=== PATIENT | female | born 1935 | race Caucasian/White ===

== ENCOUNTER 2017-02-26 11:16 | Inpatient (IN) | payer MEDICARE, BC, OTHER ==
[2017-02-26] VITALS (16 sets, daily range): BP systolic 108–137; BP diastolic 58–74; PULSE 95–122; RESP 20–32; TEMP 97.9–101.7; O2SAT 77–100
[~2017-02-26] VITALS: Ht 160 cm; Wt 49.8 kg
[~2017-02-26 11:16] MED LIST: ASPI-147 PO; ATOR40TA16 PO; CO Q100C9; CRANPOW2 PO; FURO1TAB62 PO; JANT3TAB PO; METO1TAB9 PO; OMEP20TA93 PO; SYMB160A INH; VITA500T83 PO
[2017-02-26 11:51] LABS: AUTOMATED NEUTROPHIL # 14.9 TH/MM3 (1.8-7.7); BASOPHIL % 0.3 % (0.0-2.0); HEMATOCRIT 36.2 % (35.0-46.0); HEMO FLAGS DIFF FINAL; LYMPH % 4.9 % (9.0-44.0); LYMPHOCYTE # 0.8 TH/MM3 (1.0-4.8); MEAN CELL VOLUME 89.9 FL (80.0-100.0); MEAN CORPUSCULAR HEMOGLOBIN 29.5 PG (27.0-34.0); MEAN CORPUSCULAR HGB CONC 32.8 % (32.0-36.0); MONO % 3.6 % (0.0-8.0); NEUT % 91.2 % (16.0-70.0); PLATELET COUNT 447 TH/MM3 (150-450); RED BLOOD COUNT 4.03 MIL/MM3 (4.00-5.30); RED CELL DISTRIBUTION WIDTH 14.5 % (11.6-17.2); WHITE BLOOD COUNT 16.4 TH/MM3 (4.0-11.0)
[2017-02-26] MEDS ORDERED: SODIUM CHLOR 0.9% 1000 ML INJ 1,000 ML IV SCH (11:53)
--- NOTE | 2017-02-26 11:59 | PD ---
HPI Chief Complaint: Altered Mental Status Time Seen by Provider: 11:25 Travel History International Travel<30 days: No Contact w/Intl Traveler<30days: No Traveled to known affect area: No History of Present Illness HPI 81-year-old female came to the emergency room brought by EMS for altered mental status. She was last seen normal by her friends yesterday morning. She was found today by one of the friends on the bathroom floor confused. Patient is on Coumadin and may have had a head injury during the fall. Patient was given a GCS of 12. She is confused and not answering questions appropriately. She is a poor historian at this point. She was tachycardic upon arrival in 120s and rectal temperature was 101.7. [facility] Past Medical History Narrative Medical List of her past medical, surgical, social and family history is reviewed from the nursing note. 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) High Cholesterol: Yes Chemotherapy: Yes Chest Pain: Yes Congestive Heart Failure: No COPD: Yes Cerebrovascular Accident: No Diabetes: No Diminished Hearing: No Endocrine: No Gastrointestinal Disorders: Yes GERD: Yes Genitourinary: Yes Hepatitis: No Hiatal Hernia: No Hypertension: Yes Immune Disorder: No Implanted Vascular Access Dvce: No Kidney Stones: No Musculoskeletal: Yes Neurologic: No Psychiatric: No Reproductive: No Respiratory: Yes (ONE LUNG/ LUNG CA) Immunizations Current: Yes (SHINGLES VACCINE 01/2015) Migraines: No Radiation Therapy: Yes ([id number]) Renal Failure: No Seizures: No Sickle Cell Disease: No Sleep Apnea: No Thyroid Disease: No Ulcer: No Menopausal: Yes Ectopic : Yes (X 2-RESULTED IN HYSTERECTOMY) Past Surgical History Abdominal Surgery: Yes (CHOLECYSTECTOMY, APPENDECTOMY) AICD: No Appendectomy: Yes Arteriovenous Shunt: No Cardiac Surgery: Yes (CABG 1998) Cholecystectomy: Yes 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) Ear Surgery: No Endocrine Surgery: No Eye Surgery: No Genitourinary Surgery: No Gynecologic Surgery: Yes (HYSTERECTOMY) Hysterectomy: Yes Insulin Pump: No Joint Replacement: No Neurologic Surgery: No Oral Surgery: No Pacemaker: No Thoracic Surgery: Yes (R total LUNG REMOVED 2007) Tonsillectomy: Yes Other Surgery: Yes Social History Alcohol Use: No Tobacco Use: No (QUIT 1996) Substance Use: No Allergies-Medications (Allergen,Severity, Reaction): Coded Allergies: cefuroxime (Unverified Adverse Reaction, Severe, SEVERE ABD PAIN, 02/26/17) Uncoded Allergies: TREMADIN (Allergy, Unknown, ., 03/11/16) Comments List of her allergies reviewed from the nursing note. Reported Meds & Prescriptions Reported Meds & Active Scripts Active Lasix (Furosemide) 20 Mg Tab 20 Mg PO DAILY 5 Days Metoprolol Succinate ER 24 HR (Metoprolol Succinate) 50 Mg Tab 50 Mg PO DAILY Reported [Cranberry] 25,000 Mg PO DAILY Vitamin C ER (Ascorbic Acid) 500 Mg Maite 1,000 Mg PO Co Q 10 (Coenzyme Q10 (Ubidecarenone)) 100 Mg-5 Unit Cap Jantoven (Warfarin) 3 Mg Tab 3 Mg PO DAILY Atorvastatin (Atorvastatin Calcium) 40 Mg Tab 40 Mg PO HS Ecotrin Low Strength (Aspirin) 81 Mg Tabdr 81 Mg PO DAILY Omeprazole 20 Mg Tab 20 Mg PO HS Symbicort Inh (Budesonide/Formoterol Fumarate) 160-4.5 Mcg/Act Aero 2 Puff INH Q12HR Narrative Medication List of her home medications reviewed from the nursing note. Review of Systems ROS Limitations: Altered Mental Status Except as stated in HPI: all other systems reviewed are Neg Physical Exam Narrative GENERAL: Altered mental status, mostly nonverbal SKIN: Focused skin assessment warm/dry. Covered in bruises and ecchymosis HEAD: Atraumatic. Normocephalic. EYES: Pupils equal and round. No scleral icterus. No injection or drainage. ENT: No nasal bleeding or discharge. Mucous membranes pink and moist. NECK: Trachea midline. No JVD. CARDIOVASCULAR: Regular rate and rhythm. No murmur appreciated. RESPIRATORY: No accessory muscle use. Clear to auscultation. Breath sounds equal bilaterally. GASTROINTESTINAL: Abdomen soft, non-tender, nondistended. Hepatic and splenic margins not palpable. MUSCULOSKELETAL: No obvious deformities. No clubbing. No cyanosis. No edema. NEUROLOGICAL: GCS of 12, moving all 4 extremities, not following commands PSYCHIATRIC: Difficult to assess. Data Data Last Documented VS Vital Signs Date Time Temp Pulse Resp B/P (MAP) Pulse Ox O2 Delivery O2 Flow Rate FiO2 02/26/17 12:45 95 22 125/58 (80) 98 Nasal Cannula 2.00 02/26/17 11:57 101.7 Orders Orders Complete Blood Count With Diff (02/26/17 11:37) Lactic Acid (02/26/17 11:37) Prothrombin Time / Inr (Pt) (02/26/17 11:39) Electrocardiogram (02/26/17 11:53) Ammonia (02/26/17 11:53) Urinalysis - C+S If Indicated (02/26/17 11:53) Blood Culture (02/26/17 11:53) Chest, Single Ap (02/26/17 11:53) Ct Brain W/O Iv Contrast(Rout) (02/26/17 11:53) Blood Glucose (02/26/17 11:53) Ecg Monitoring (02/26/17 11:53) Iv Access Insert/Monitor (02/26/17 11:53) Oximetry (02/26/17 11:53) Sodium Chloride 0.9% Flush (Ns Flush) (02/26/17 12:00) Sodium Chlor 0.9% 1000 Ml Inj (Ns 1000 M (02/26/17 11:53) Drug Screen, Random Urine (02/26/17 11:53) Alcohol (Ethanol) (02/26/17 11:53) Salicylates (Aspirin) (02/26/17 11:53) Type And Screen (02/26/17 11:55) Acetaminophen Supp (Tylenol Supp) (02/26/17 12:00) Urinary Catheter Insert/Apply (02/26/17 11:57) Sodium Chlor 0.9% 1000 Ml Inj (Ns 1000 M (02/26/17 12:00) Piperacil-Tazo 4.5 Gm Premix (Zosyn 4.5 (02/26/17 12:00) Vancomycin Inj (Vancomycin Inj) (02/26/17 12:00) Ct Cerv Spine W/O Contrast (02/26/17 ) Ct Abd/Pel W/O Iv Contrast (02/26/17 ) Tylenol (Acetaminophen) (02/26/17 11:40) Creatine Kinase (Cpk) (02/26/17 11:40) Comprehensive Metabolic Panel (02/26/17 11:40) Troponin I (02/26/17 11:40) Thyroid Stimulating Hormone (02/26/17 11:40) Urine Culture (02/26/17 12:30) CKMB (02/26/17 11:40) CKMB% (02/26/17 11:40) Admit Order (Ed Use Only) (02/26/17 13:58) Echo 2d Comp With Doppler (02/26/17 ) Labs Laboratory Tests Test 02/26/17 11:40 02/26/17 11:41 02/26/17 12:30 02/26/17 12:41 White Blood Count 16.4 TH/MM3 Red Blood Count 4.03 MIL/MM3 Hemoglobin 11.9 GM/DL Hematocrit 36.2 % Mean Corpuscular Volume 89.9 FL Mean Corpuscular Hemoglobin 29.5 PG Mean Corpuscular Hemoglobin Concent 32.8 % Red Cell Distribution Width 14.5 % Platelet Count 447 TH/MM3 Mean Platelet Volume 6.6 FL Neutrophils (%) (Auto) 91.2 % Lymphocytes (%) (Auto) 4.9 % Monocytes (%) (Auto) 3.6 % Eosinophils (%) (Auto) 0.0 % Basophils (%) (Auto) 0.3 % Neutrophils # (Auto) 14.9 TH/MM3 Lymphocytes # (Auto) 0.8 TH/MM3 Monocytes # (Auto) 0.6 TH/MM3 Eosinophils # (Auto) 0.0 TH/MM3 Basophils # (Auto) 0.0 TH/MM3 CBC Comment DIFF FINAL Differential Comment Prothrombin Time 90.0 SEC Prothromb Time International Ratio 7.5 RATIO Blood Urea Nitrogen 13 MG/DL Creatinine 0.75 MG/DL Random Glucose 141 MG/DL Total Protein 7.0 GM/DL Albumin 2.8 GM/DL Calcium Level 8.7 MG/DL Alkaline Phosphatase 65 U/L Aspartate Amino Transf (AST/SGOT) 62 U/L Alanine Aminotransferase (ALT/SGPT) 37 U/L Total Bilirubin 0.5 MG/DL Sodium Level 131 MEQ/L Potassium Level 4.9 MEQ/L Chloride Level 96 MEQ/L Carbon Dioxide Level 24.5 MEQ/L Anion Gap 11 MEQ/L Estimat Glomerular Filtration Rate 74 ML/MIN Total Creatine Kinase 213 U/L Creatine Kinase MB 14.4 NG/ML Creatine Kinase MB % 6.8 % Troponin I 5.28 NG/ML B-Type Natriuretic Peptide 825 PG/ML Thyroid Stimulating Hormone 3rd Gen 1.130 uIU/ML Salicylates Level LESS THAN 1.7 MG/DL Acetaminophen Level LESS THAN 2.0 MCG/ML Ethyl Alcohol Level LESS THAN 3 MG/DL Lactic Acid Level 2.0 mmol/L Urine Color YELLOW Urine Turbidity HAZY Urine pH 6.0 Urine Specific [place] 1.015 Urine Protein TRACE mg/dL Urine Glucose (UA) NEG mg/dL Urine Ketones 10 mg/dL Urine Occult Blood TRACE Urine Nitrite NEG Urine Bilirubin NEG Urine Urobilinogen LESS THAN 2.0 MG/DL Urine Leukocyte Esterase LARGE Urine RBC 27 /hpf Urine WBC 16 /hpf Urine Squamous Epithelial Cells <1 /hpf Urine Bacteria OCC /hpf Urine Mucus FEW /lpf Microscopic Urinalysis Comment CATH-CULTURE IND Urine Opiates Screen NEG Urine Barbiturates Screen NEG Urine Amphetamines Screen NEG Urine Benzodiazepines Screen NEG Urine Cocaine Screen NEG Urine Cannabinoids Screen NEG Ammonia LESS THAN 10 MCMOL/L MDM Medical Decision Making Medical Screen Exam Complete: Yes Emergency Medical Condition: Yes Medical Record Reviewed: Yes Interpretation(s) Twelve-lead EKG was reviewed by me. Normal sinus rhythm, normal axis, anterior septal Q waves with ST elevation, STEMI of indeterminate origin. Heart rate of 99 bpm. Differential Diagnosis Sepsis, intracranial bleed, UTI, pneumonia, electrolyte abnormalities Narrative Course 2 PM blood test results came back and patient has leukocytosis with significant left shift. She was started on Zosyn and vancomycin as per sepsis protocol and fluid. Chemistry had to be redrawn and sent and the report just came back and troponin is markedly elevated INR was supratherapeutic. I discussed the EKG and troponin with Dr. Weber who is on-call for cardiology. Medical management as per cardiology so far. I discussed with the environmental attorney Dr. Hernández regarding the patient since in my opinion this patient is in a critical condition and should go to the ICU. He is accepted the patient. CAT scan of the head, C-spine was negative. Chest x-ray was negative. As per the supervisor carbon paper coating no echocardiogram needed at this point. Critical Care Narrative Aggregate critical care time was 60 minutes. Time to perform other separately billable procedures was not included in the critical care time. My time did not include minutes spent treating any other patients simultaneously or on activities that did not directly contribute to the patient's treatment. The services I provided to this patient were to treat and/or prevent clinically significant deterioration that could result in: Sepsis, WI, antibiotic per sepsis protocol, altered mental status I provided critical care services requiring my management, as noted below: Chart data review, documentation time, medication orders and management, vital sign assessments/reviewing monitor data, ordering and reviewing lab tests, ordering and interpreting/reviewing x-rays and diagnostic studies, care of the patient and discussion of the patient with the admitting physicians. Procedures EKG Prior to Arrival: No Physician Communication Physician Communication Dr. Yuen, Dr. Weber Diagnosis Primary Impression: Sepsis Qualified Codes: A41.9 - Sepsis, unspecified organism Additional Impressions: Non-STEMI (non-ST elevated myocardial infarction) UTI (urinary tract infection) Qualified Codes: N39.0 - Urinary tract infection, site not specified Altered mental status Qualified Codes: R41.0 - Disorientation, unspecified Supratherapeutic INR Admitting Information Admitting Physician Requests: Domingo El MD Feb 26, 2017 11:59
[2017-02-26] MEDS ORDERED: ACETAMINOPHEN 650 MG SUPP RECTAL ONE (12:00)
[2017-02-26] MEDS: SODIUM CHLOR 0.9% 1000 ML INJ 1,000 ML IV ONE ×2 (12:00→13:24)
[2017-02-26] MEDS ORDERED: VANCOMYCIN INJ 1,000 MG in SODIUM CHLOR 0.9% 250 ML INJ 250 ML IV ONE ×2 (12:00→15:15)
[2017-02-26] MEDS ORDERED: SODIUM CHLORIDE 0.9% FLUSH 5 ML FLUSH IV FLUSH PRN (12:00)
[2017-02-26] MEDS ORDERED: PIPERACIL-TAZO 4.5 GM PREMIX 100 ML IV ONE (12:00)
--- NOTE | 2017-02-26 12:17 | RADRPT ---
EXAM DATE/TIME: 02/26/2017 12:05 [facility] COMPARISON: CT BRAIN W/O CONTRAST, March 11, 2016, 12:28. INDICATIONS : Confusion, altered mental status. Found on the floor. RADIATION DOSE: 62.37 CTDIvol (mGy) MEDICAL HISTORY : Cardiovascular disease. Hypertension. Lung cancer, rad, chemo SURGICAL HISTORY : Appendectomy. Cholecystectomy.CABG ENCOUNTER: Initial ACUITY: 1 day PAIN SCALE: 0/10 LOCATION: cranial TECHNIQUE: Multiple contiguous axial images were obtained of the head. Using automated exposure control and adj ustment of the mA and/or kV according to patient size, radiation dose was kept as low as reasonably a chievable to obtain optimal diagnostic quality images. DICOM format image data is available electro nically for review and comparison. FINDINGS: CEREBRUM: The ventricles are normal for age. No evidence of midline shift, mass lesion, hemorrhage or acute in farction. No extra-axial fluid collections are seen. POSTERIOR FOSSA: The cerebellum and brainstem are intact. The 4th ventricle is midline. The cerebellopontine angle i s unremarkable. EXTRACRANIAL: The visualized portion of the orbits is intact. SKULL: The calvaria is intact. No evidence of skull fracture. CONCLUSION: Normal examination. Hubert Castillo MD on February 26, 2017 at 12:14 Board Certified Radiologist. This report was verified electronically.
[2017-02-26 12:18] LABS: INTERNATIONAL NORMALIZED RATIO 7.5 RATIO
--- NOTE | 2017-02-26 12:24 | RADRPT ---
EXAM DATE/TIME: 02/26/2017 12:05 [facility] COMPARISON: No previous studies available for comparison. INDICATIONS : Found on floor. RADIATION DOSE: 13.07 CTDIvol (mGy) MEDICAL HISTORY : Cardiovascular disease. Hypertension. SURGICAL HISTORY : Appendectomy. Cholecystectomy.Hysterectomy.CABG ENCOUNTER: Initial ACUITY: 1 day PAIN SCALE: 6/10 LOCATION: neck TECHNIQUE: Volumetric scanning of the cervical spine was performed. Multiplanar reconstructions in the sagittal, coronal and oblique axial planes were performed. Using automated exposure control and adjustment o f the mA and/or kV according to patient size, radiation dose was kept as low as reasonably achievable to obtain optimal diagnostic quality images. DICOM format image data is available electronically f or review and comparison. FINDINGS: VERTEBRAE: Normal vertebral body height. Mild anterior spondylolisthesis of C3 on C4 and C4 on C5. Moderate inte rvertebral disc space narrowing at the C4-5, and C5-6 levels. ALIGNMENT: No evidence of subluxation. C2-C3: The bony spinal canal is normal in size. No evidence of disc bulge or herniation. The neural forami na are bilaterally patent. C3-C4: The bony spinal canal is normal in size. No evidence of disc bulge or herniation. The neural forami na are bilaterally patent. Marked left-sided degenerative facet disease C4-C5: The bony spinal canal is normal in size. No evidence of disc bulge or herniation. The neural forami na are bilaterally patent. Right sided facet joints are fused.. C5-C6: The bony spinal canal is normal in size. No evidence of disc bulge or herniation. The neural forami na are bilaterally patent. C6-C7: The bony spinal canal is normal in size. No evidence of disc bulge or herniation. The neural forami na are bilaterally patent. C7-T1: The bony spinal canal is normal in size. No evidence of disc bulge or herniation. The neural forami na are bilaterally patent. CONCLUSION: Multilevel degenerative facet disease and degenerative disc disease. No evidence of an acute fracture or spinal stenosis Hubert Castillo MD on February 26, 2017 at 12:19 Board Certified Radiologist. This report was verified electronically.
--- NOTE | 2017-02-26 12:31 | RADRPT ---
EXAM DATE/TIME: 02/26/2017 12:12 [facility] COMPARISON: CT ABDOMEN & PELVIS W/O CONTRAST, November 12, 2015, 12:55. INDICATIONS : Found on floor.Abdomimal pain ORAL CONTRAST: No oral contrast ingested. RADIATION DOSE: CTDIvol (mGy) MEDICAL HISTORY : Cardiovascular disease. Hypertension. Ca lung, chemo and radiation SURGICAL HISTORY : Appendectomy. Cholecystectomy.Hysterectomy.CABG ENCOUNTER: Initial ACUITY: 1 day PAIN SCALE: 6/10 LOCATION: Bilateral Abdominal TECHNIQUE: Volumetric scanning of the abdomen and pelvis was performed. Using automated exposure control and ad justment of the mA and/or kV according to patient size, radiation dose was kept as low as reasonably achievable to obtain optimal diagnostic quality images. DICOM format image data is available electro nically for review and comparison. FINDINGS: LOWER LUNGS: Stable consolidation right lower lobe with shift of the mediastinum from left to right. The right hem idiaphragm remains elevated LIVER: Homogeneous density without lesion. There is no dilation of the biliary tree. Cholecystectomy clips. SPLEEN: Normal size without lesion. PANCREAS: Within normal limits. KIDNEYS: Normal in size and shape. There is no mass, stone, or hydronephrosis except stable cyst lower pole r ight kidney. ADRENAL GLANDS: Within normal limits. 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 There is no free intraperitone al air or fluid. ABDOMINAL WALL: Within normal limits. RETROPERITONEUM: There is no lymphadenopathy. BLADDER: No wall thickening or mass. REPRODUCTIVE: Within normal limits. INGUINAL: There is no lymphadenopathy or hernia. MUSCULOSKELETAL: Within normal limits for patient age. Lumbar degenerative facet disease CONCLUSION: Stable examination. No evidence of bowel obstruction or concerning solid organ mass. Dense atheroscle rotic disease. Stable consolidation right lower lobe. Hubert Castillo MD on February 26, 2017 at 12:26 Board Certified Radiologist. This report was verified electronically.
--- NOTE | 2017-02-26 12:58 | EKG ---
Date Performed: 02/26/2017 Time Performed: 11:39:42 PTAGE: 81 years EKG: ECTOPIC ATRIAL RHYTHM POSSIBLE LEFT ATRIAL ENLARGEMENT ST ELEVATION, CONSIDER ANTERIOR INJU RY ACUTE MA NO PREVIOUS TRACING DOCTOR: Michael Nunez Interpretating Date/Time 02/26/2017 12:57:33
[2017-02-26 13:05] LABS: BACTERIA, URINE OCC /hpf; BLOOD, URINE TRACE (NEG); GLUCOSE,URINE NEG (NEG); KETONE, URINE 10 mg/dL (NEG); MUCUS URINE FEW /lpf (OCC); NITRITE,URINE NEG (NEG); SQUAMOUS EPITHELIAL CELL URINE <1 /hpf (0-5); URINE COLOR YELLOW (YELLW/STRAW)
[2017-02-26 13:06] LABS: COMMENT (UR) CATH-CULTURE IND; CULTURE IF INDICATED CATH CULTURE IND
[2017-02-26 13:08] LABS: ACETAMINOPHEN LESS THAN 2.0 MCG/ML (10.0-30.0); ALKALINE PHOSPHATASE 65 U/L (45-117); ANION GAP 11 MEQ/L (5-15); AST (GOT) 62 U/L (15-37); BICARBONATE 24.5 MEQ/L (21.0-32.0); BLOOD UREA NITROGEN 13 MG/DL (7-18); CHLORIDE 96 MEQ/L (98-107); CREATINE KINASE 213 U/L (26-192); GLOMERULAR FILTRATION RATE 74 ML/MIN (>89); POTASSIUM 4.9 MEQ/L (3.5-5.1); SODIUM (NA) 131 MEQ/L (136-145); TOTAL BILIRUBIN ADULT 0.5 MG/DL (0.2-1.0)
[2017-02-26 13:23] LABS: ALT (GPT) 37 U/L (10-53)
--- NOTE | 2017-02-26 13:28 | RADRPT ---
EXAM DATE/TIME: 02/26/2017 12:53 [facility] COMPARISON: CHEST SINGLE AP, February 17, 2017, 14:11. INDICATIONS : Syncopal episode. MEDICAL HISTORY : Hypercholesterolemia. Hypertension Chronic obstructive pulmonary disease. Lung cancer. SURGICAL HISTORY : CABG. Total right lung removed ENCOUNTER: Initial ACUITY: 1 day PAIN SCORE: Non-responsive. LOCATION: Bilateral chest FINDINGS: Pneumonectomy on the right with complete opacification of the right hemithorax and volume loss again noted. Left lung remains clear. No left pleural effusion. No pneumothorax. Heart size stable, within normal limits. Patient has had previous median sternotomy and right thoraco maria t. CONCLUSION: No acute abnormality demonstrated. Right pneumonectomy. Left lung clear. Maurisio Saab MD on February 26, 2017 at 13:25 Board Certified Radiologist. This report was verified electronically.
[2017-02-26 13:40] LABS: CKMB 14.4 NG/ML (0.5-3.6)
[2017-02-26] MEDS ORDERED: CHLORHEXIDINE GLUCONATE 2 % 1 PACK (2 CLOTHS) TOP PRN (14:00)
[2017-02-26] MEDS ORDERED: MAGNESIUM HYDROXIDE SUSP 30 ML CUP PO PRN (14:00)
[2017-02-26] MEDS ORDERED: POTASSIUM CHLOR 40 MEQ PREMIX 100 ML IV PRN ×2 (14:00)
[2017-02-26] MEDS ORDERED: ONDANSETRON HCL 4 MG/2 ML VIAL IV PUSH PRN (14:00)
[2017-02-26] MEDS ORDERED: MAGNESIUM SULFATE INJ 4 GM in SODIUM CHLORIDE 0.9% INJ 92 ML IV PRN (14:00)
[2017-02-26] MEDS ORDERED: MAGNESIUM SULFATE INJ 2 GM in SODIUM CHLORIDE 0.9% INJ 96 ML IV PRN (14:00)
[2017-02-26] MEDS ORDERED: POTASSIUM CHLOR 20 MEQ PREMIX 100 ML IV PRN (14:00)
[2017-02-26] MEDS ORDERED: LACTULOSE SYRUP 20 GM/30 ML CUP PO PRN (14:00)
[2017-02-26] MEDS ORDERED: BISACODYL 10 MG SUPP RECTAL PRN (14:00)
[2017-02-26] MEDS ORDERED: MISCELLANEOUS NURSING INFORMATION XX SCH (14:00)
[2017-02-26] MEDS ORDERED: ACETAMINOPHEN 325 MG TAB PO PRN (14:00)
[2017-02-26] MEDS ORDERED: SODIUM PHOSPHATE INJ 30 MMOL in SODIUM CHLOR 0.9% 250 ML INJ 240 ML IV PRN (14:00)
[2017-02-26] MEDS ORDERED: POTASSIUM PHOSPHATE MONOBASIC 500 MG TAB PO/TUBE PRN (14:00)
[2017-02-26] MEDS ORDERED: SENNOSIDES 8.6 MG TAB PO PRN (14:00)
[2017-02-26] MEDS ORDERED: POTASSIUM PHOSPHATE MONOBASIC 500 MG TAB PO PRN (14:00)
[2017-02-26] MEDS ORDERED: DEXTROSE 50% IN WATER 50 ML VIAL(D50) IV PUSH PRN (14:00)
[2017-02-26] MEDS ORDERED: POTASSIUM PHOSPHATE INJ 30 MMOL in SODIUM CHLOR 0.9% 250 ML INJ 250 ML IV PRN (14:00)
[2017-02-26] MEDS ORDERED: RESP: ALBUTEROL 2.5 MG/IPRATROPIUM 0.5 MG NEB (PRN) INH (14:00)
[2017-02-26] MEDS ORDERED: MAGNESIUM OXIDE 400 MG TAB PO PRN (14:00)
--- NOTE | 2017-02-26 14:48 | HHI.HP ---
[facility] Service Critical Care Medicine Primary Care Physician Arben Patton MD Admission Diagnosis sepsis, [place], altered mental status, supratherapeutic INR Diagnosis: Chief Complaint: altered mental status Travel History International Travel<30 Days: No Contact w/Intl Traveler <30 Da: No Traveled to Known Affected Are: No History of Present Illness This is an 81-year-old female who presents via EMS for altered mental status. She was last seen normal last night by friends per report. Unfortunately, the patient is quite altered and unable to participate in history, so any additional information with the patient is unobtainable. 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 She presents today with fever to 101, tachycardia to the 120s, and altered mental status. She is protecting her airway and arousable, but cannot provide additional information. Her UA is positive. She has leukocytosis to 16,000, normal renal function. She does of note have an elevated troponin at greater than 5. Her INR is greater than 7. In the emergency department she was given 2 L of normal saline fluid bolus for suspected sepsis. Blood cultures were drawn and she was given vancomycin and Zosyn. Head CT is unremarkable. CT abdomen and pelvis is also unremarkable. CT C-spine is negative for acute fracture or cervical disruption. Critical- care medicine is consulted to evaluate her encephalopathy, elevated troponins, possible sepsis. Of note she does have an EKG with questionable inferior Q waves, without overt STEMI criteria. Review of Systems ROS Limitations: Clinical Condition, Altered Mental Status Past Family Social History Allergies: Coded Allergies: cefuroxime (Unverified Adverse Reaction, Severe, SEVERE ABD PAIN, 02/26/17) Uncoded Allergies: TREMADIN (Allergy, Unknown, ., 03/11/16) Past Medical History unknown and unobtainable secondary to the clinical condition of the patient. Per chart review from 10/2015: coronary artery disease hyperlipidemia hypertension frequent UTI history of pulmonary emboli on Coumadin GERD Past Surgical History unknown and unobtainable secondary to the clinical condition of the patient. Per chart review from 10/2015: right pneumonectomy CABG Reported Medications Lasix (Furosemide) 20 Mg Tab 20 Mg PO DAILY 5 Days Metoprolol Succinate ER 24 HR (Metoprolol Succinate) 50 Mg Tab 50 Mg PO DAILY [Cranberry] 25,000 Mg PO DAILY Vitamin C ER (Ascorbic Acid) 500 Mg Maite 1,000 Mg PO Co Q 10 (Coenzyme Q10 (Ubidecarenone)) 100 Mg-5 Unit Cap Jantoven (Warfarin) 3 Mg Tab 3 Mg PO DAILY Atorvastatin (Atorvastatin Calcium) 40 Mg Tab 40 Mg PO HS Ecotrin Low Strength (Aspirin) 81 Mg Tabdr 81 Mg PO DAILY Omeprazole 20 Mg Tab 20 Mg PO HS Symbicort Inh (Budesonide/Formoterol Fumarate) 160-4.5 Mcg/Act Aero 2 Puff INH Q12HR Active Ordered Medications See MAR Family History unknown and unobtainable secondary to the clinical condition of the patient. Social History unknown and unobtainable secondary to the clinical condition of the patient. Physical Exam Vital Signs Vital Signs Date Time Temp Pulse Resp B/P (MAP) Pulse Ox O2 Delivery O2 Flow Rate FiO2 02/26/17 14:21 120 24 118/59 (78) 100 Nasal Cannula 2.00 02/26/17 14:14 99.9 02/26/17 12:45 95 22 125/58 (80) 98 Nasal Cannula 2.00 02/26/17 11:57 101.7 100 Nasal Cannula 2.00 02/26/17 11:37 97.9 02/26/17 11:31 122 24 137/69 (91) 77 Room Air Physical Exam GENERAL: Frail elderly female, lying in bed, acutely altered HEENT: Normocephalic. Atraumatic. Pupils equal, round, reactive, conjugate. Mucous membranes are moist NECK: Trachea is midline. There is no JVD. no nuchal rigidity or neck tenderness. CHEST: Equal chest rise. Clear to auscultation. Nasal cannula oxygen. Protecting airway. Positive gag. CARDIOVASCULAR: Tachycardic rate, regular rhythm. Sinus by telemetry ABDOMEN: Soft, nontender, nondistended. No guarding. MUSCULOSKELETAL: Pulses 2+. No peripheral edema. No evidence of bruising NEUROLOGICAL: RASS -3. GCS 9 (E3,V2,M4). withdraws briskly. purposeful. moves all extremities. moans. +cough. +gag. Laboratory Laboratory Tests Test 02/26/17 11:40 02/26/17 11:41 02/26/17 12:30 02/26/17 12:41 White Blood Count 16.4 Red Blood Count 4.03 Hemoglobin 11.9 Hematocrit 36.2 Mean Corpuscular Volume 89.9 Mean Corpuscular Hemoglobin 29.5 Mean Corpuscular Hemoglobin Concent 32.8 Red Cell Distribution Width 14.5 Platelet Count 447 Mean Platelet Volume 6.6 Neutrophils (%) (Auto) 91.2 Lymphocytes (%) (Auto) 4.9 Monocytes (%) (Auto) 3.6 Eosinophils (%) (Auto) 0.0 Basophils (%) (Auto) 0.3 Neutrophils # (Auto) 14.9 Lymphocytes # (Auto) 0.8 Monocytes # (Auto) 0.6 Eosinophils # (Auto) 0.0 Basophils # (Auto) 0.0 CBC Comment DIFF FINAL Differential Comment Prothrombin Time 90.0 Prothromb Time International Ratio 7.5 Blood Urea Nitrogen 13 Creatinine 0.75 Random Glucose 141 Total Protein 7.0 Albumin 2.8 Calcium Level 8.7 Alkaline Phosphatase 65 Aspartate Amino Transf (AST/SGOT) 62 Alanine Aminotransferase (ALT/SGPT) 37 Total Bilirubin 0.5 Sodium Level 131 Potassium Level 4.9 Chloride Level 96 Carbon Dioxide Level 24.5 Anion Gap 11 Estimat Glomerular Filtration Rate 74 Total Creatine Kinase 213 Creatine Kinase MB 14.4 Creatine Kinase MB % 6.8 Troponin I 5.28 Thyroid Stimulating Hormone 3rd Gen 1.130 Salicylates Level LESS THAN 1.7 Acetaminophen Level LESS THAN 2.0 Ethyl Alcohol Level LESS THAN 3 Lactic Acid Level 2.0 Urine Color YELLOW Urine Turbidity HAZY Urine pH 6.0 Urine Specific [place] 1.015 Urine Protein TRACE Urine Glucose (UA) NEG Urine Ketones 10 Urine Occult Blood TRACE Urine Nitrite NEG Urine Bilirubin NEG Urine Urobilinogen LESS THAN 2.0 Urine Leukocyte Esterase LARGE Urine RBC 27 Urine WBC 16 Urine Squamous Epithelial Cells <1 Urine Bacteria OCC Urine Mucus FEW Microscopic Urinalysis Comment CATH-CULTURE IND Urine Opiates Screen NEG Urine Barbiturates Screen NEG Urine Amphetamines Screen NEG Urine Benzodiazepines Screen NEG Urine Cocaine Screen NEG Urine Cannabinoids Screen NEG Ammonia LESS THAN 10 Date/Time Source Procedure Growth Status 02/26/17 12:30 Blood Peripheral Aerobic Blood Culture Pending Received 02/26/17 12:30 Blood Peripheral Anaerobic Blood Culture Pending Received 02/26/17 12:30 Urine Catheterized Urine Urine Culture Pending Received Result Diagram: 02/26/17 1140 02/26/17 1140 Imaging Last Impressions Head CT 02/26/17 1153 Signed Impressions: Service Date/Time: Sunday, February 26, 2017 12:05 - CONCLUSION: Normal examination. Hubert Castillo MD Chest X-Ray 02/26/17 1153 Signed Impressions: Service Date/Time: Sunday, February 26, 2017 12:53 - CONCLUSION: No acute abnormality demonstrated. Right pneumonectomy. Left lung clear. Maurisio Saab MD Cervical Spine CT 02/26/17 0000 Signed Impressions: Service Date/Time: Sunday, February 26, 2017 12:05 - CONCLUSION: Multilevel degenerative facet disease and degenerative disc disease. No evidence of an acute fracture or spinal stenosis Hubert Castillo MD Abdomen/Pelvis CT 02/26/17 0000 Signed Impressions: Service Date/Time: Sunday, February 26, 2017 12:12 - CONCLUSION: Stable examination. No evidence of bowel obstruction or concerning solid organ mass. Dense atherosclerotic disease. Stable consolidation right lower lobe. Hubert Castillo MD Caprini VTE Risk Assessment Caprini VTE Risk Assessment: Mod/High Risk (score >= 2) Caprini Risk Assessment Model Point Value = 1 Point Value = 2 Point Value = 3 Point Value = 5 Age 41-60 Minor surgery BMI > 25 kg/m2 Swollen legs Varicose veins or History of unexplained or recurrent spontaneous Oral contraceptives or hormone replacement Sepsis (< 1 month) Serious lung disease, including pneumonia (< 1 month) Abnormal pulmonary function Acute myocardial infarction Congestive heart failure (< 1 month) History of inflammatory bowel disease Medical patient at bed rest Age 61-74 Arthroscopic surgery Major open surgery (> 45 min) Laparoscopic surgery (> 45 min) Malignancy Confined to bed (> 72 hours) Immobilizing plaster cast Central venous access Age >= 75 History of VTE Family history of VTE Factor V Leiden Prothrombin [id number] Lupus anticoagulant Anticardiolipin antibodies Elevated serum homocysteine Heparin-induced thrombocytopenia Other congenital or acquired thrombophilia Stroke (< 1 month) Elective arthroplasty Hip, pelvis, or leg fracture Acute spinal cord injury (< 1 month) Prophylaxis Regimen Total Risk Factor Score Risk Level Prophylaxis Regimen 0-1 Low Early ambulation 2 Moderate Order ONE of the following: *Sequential Compression Device (SCD) *Heparin 5000 units SQ BID 3-4 Higher Order ONE of the following medications: *Heparin 5000 units SQ TID *Enoxaparin/Lovenox 40 mg SQ daily (WT < 150 kg, CrCl > 30 mL/min) *Enoxaparin/Lovenox 30 mg SQ daily (WT < 150 kg, CrCl > 10-29 mL/min) *Enoxaparin/Lovenox 30 mg SQ BID (WT < 150 kg, CrCl > 30 mL/min) AND/OR *Sequential Compression Device (SCD) 5 or more Highest Order ONE of the following medications: *Heparin 5000 units SQ TID (Preferred with Epidurals) *Enoxaparin/Lovenox 40 mg SQ daily (WT < 150 kg, CrCl > 30 mL/min) *Enoxaparin/Lovenox 30 mg SQ daily (WT < 150 kg, CrCl > 10-29 mL/min) *Enoxaparin/Lovenox 30 mg SQ BID (WT < 150 kg, CrCl > 30 mL/min) AND *Sequential Compression Device (SCD) Assessment and Plan Assessment and Plan Assessment: 81yF with new-onset acute Encephalopathy, likely metabolic, as well as fever and tachycardia, and elevated troponins. Certainly this could be severe sepsis, though most end-organs are preserved with exception of encephalopathy. Unable to assess for ACS given her altered mental status. repeat troponins pending. Unlikely to be primary [employer] infection at this time, as urinary source would be more likely. Will consult cardiology and get STAT echo to eval for regional wall motion abnormalities. Trend troponins. will obtain MRI brain for possible CVA or other organic cause of acute encephalopathy. Unable to LP at this time given coagulopathy, so will cover with abx with [employer] penetrance. Critically ill at this time with evidence of cardiac myocyte injury, acute encephalopathy. Plan by systems: Neurologic: Acute encephalopathy- probable metabolic - MRI brain - avoid sedating drugs - frequent neuro checks - cannot LP currently due to coagulopathy Respiratory: - wean o2 for goal spo2 > 90% - aggressive pulmonary toilet Cardiovascular: Possible Sepsis Sinus Tachycardia Possible NSTEMI Elevated Troponins - trend troponins - cardiology consult - stat 2d echo - mivf NS @ 84 cc/hr. Renal: -- Strict I/Os FEN/GI: - mivf - NPO given altered mental status - ICU electrolyte protocol - daily BMP Heme/ID: Acute coagulopathy secondary to supratherapeutic coumadin dosing Possible Sepsis Urinary Tract Infection Reported History of prior Pulmonary Embolism - Vancomycin with pharmacy dosing - cefepime 2gm iv q8h - blood, urine cultures - no increased o2 requirement or cough to suggest pulmonary source of infection - Vit K 10 mg SQ once. - recheck daily CBC, coags - no active bleeding at this time, will not actively reverse coagulopathy Endocrine: Hyperglycemia of critical illness -- SSI, medium scale, every 6 Prophylaxis: GI Prophylaxis pepcid IV DVT Prophylaxis -- SCDs - hold pharmacologic DVT Prophylaxis given elevated INR. will need coverage once INR improves. Lines: PIVs Dispo: Admit to ICU. critically ill. This patient remains critically ill with one or more organ systems which are or may become a threat to life. I have spent in excess of 51 minutes discontinuously in the care and management of this patient. This time is exclusive of procedures, and includes, but is not limited to, evaluation of the patient, review of the medical record, discussions with family, consultants, nursing staff, or respiratory therapy, and documentation in the medical record. Code Status Full Code Berto Yuen MD Feb 26, 2017 14:48
[2017-02-26] MEDS: SODIUM CHLOR 0.9% 1000 ML INJ 1,000 ML IV SCH (15:18)
[2017-02-26] MEDS ORDERED: PHYTONADIONE 10 MG/ML VIAL SQ ONE (15:30)
--- NOTE | 2017-02-26 15:51 | RADRPT ---
EXAM DATE/TIME: 02/26/2017 15:27 [facility] COMPARISON: CT BRAIN W/O CONTRAST, February 26, 2017, 12:05. INDICATIONS : Altered mental status. MEDICAL HISTORY : Carcinoma, lung. SURGICAL HISTORY : CABG Lobectomy. ENCOUNTER: Initial ACUITY: 1 day PAIN SCORE: 0/10 LOCATION: cranial TECHNIQUE: Multiplanar, multisequence MRI of the brain was performed without contrast. FINDINGS: CEREBRUM: The ventricles are normal for age. No evidence of midline shift, mass lesion, acute hemorrhage or ac [place] infarction. A few scattered tiny foci of white matter and subcortical hemosiderin deposition dem onstrated, most conspicuous left parietal lobe white matter and right high frontal lobe subcortical. No extraaxial fluid collections are seen. The pituitary gland and suprasellar cistern are normal in configuration. WHITE MATTER: Several sub-3 mm chronic foci of flair abnormality is seen in the white matter of both cerebral hemis pheres. POSTERIOR FOSSA: The cerebellum and brainstem are intact. The 4th ventricle is midline. The cerebellopontine angle is unremarkable. The cerebellar tonsils are normal in position. DIFFUSION IMAGING: There is an approximately 5 mm focus of subcortical restricted diffusion of the left occipital lobe, series 10 image 35. EXTRACRANIAL: The visualized portions of the orbits and paranasal sinuses are unremarkable. CONCLUSION: Tiny acute subcortical infarct of the left occipital lobe. Mild chronic white matter changes cindi Saba MD on February 26, 2017 at 15:46 Board Certified Radiologist. This report was verified electronically.
[2017-02-26] MEDS ORDERED: Vancomycin Consult Pharmacy 1 EA OTHER SCH (16:00)
--- NOTE | 2017-02-26 17:15 | ECHRPT ---
Indication: heart failure CONCLUSIONS The left ventricular systolic function is severely reduced with an estimated ejection fraction in th e range of 20-25%. 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 Mild mitral valve regurgitation. Mild aortic valve regurgitation. There is mild tricuspid valve regurgitation. BP: / HR: Rhythm: MEASUREMENTS (Male / Female) Normal Values Technical Quality:Technically difficult study 2D ECHO LV Ejection Fraction MOD 4C 25.4 % LV Ejection Fraction 4C AL 26.3 % M-MODE Aortic Root Diameter MM 3.1 cm LA Systolic Diameter MM 2.0 cm LA Ao Ratio MM 0.6 AV Cusp Separation MM 0.9 cm DOPPLER Mitral E Point Velocity 47.4 cm/s Mitral A Point Velocity 35.0 cm/s Mitral E to A Ratio 1.4 LV E' Lateral Velocity 4.9 cm/s Mitral E to LV E' Lateral Ratio 9.7 LV E' Septal Velocity 5.2 cm/s Mitral E to LV E' Septal Ratio 9.2 FINDINGS LEFT VENTRICLE The left ventricular systolic function is severely reduced with an estimated ejection fraction in th e range of 20-25%. Normal left ventricular size. Distal/apical anterior, septal, lateral and inferior padilla with akinesis, possible Takotsubo cardiom yopathy RIGHT VENTRICLE The right ventricular size is normal. The right ventricular systoilc function is mildly decreased. LEFT ATRIUM The left atrial size is normal. RIGHT ATRIUM The right atrial size is normal. ATRIAL SEPTUM Normal atrial septal thickness. AORTA The aortic root and proximal ascending aorta are not well visualized. MITRAL VALVE No mitral valve stenosis. Mild mitral valve regurgitation. Structurally normal mitral valve. AORTIC VALVE Trileaflet aortic valve. Aortic valve sclerosis is present. Mild aortic valve regurgitation. No aortic valve stenosis. TRICUSPID VALVE There is mild tricuspid valve regurgitation. Structurally normal tricuspid valve. PULMONARY VALVE The pulmonary valve is not well visualized. PERICARDIUM No pericardial effusion. Sandeep Weber DO (Electronically Signed) Final Date:26 February 2017 17:14
[2017-02-26] MEDS: INSULIN NovoLIN REGULAR SUPPLEMENTAL SCALE SQ SCH (18:00)
[2017-02-26] MEDS: CEFEPIME INJ 2,000 MG in SODIUM CHLORIDE 0.9% INJ 100 ML IV SCH (18:05)
[2017-02-26] MEDS: FAMOTIDINE 20 MG/2 ML VIAL IV PUSH SCH (18:07)
[2017-02-26] MEDS: DOCUSATE SODIUM 50 MG/SENNA 8.6 MG TAB PO SCH (21:00)
[2017-02-27] VITALS (26 sets, daily range): BP systolic 90–135; BP diastolic 51–83; PULSE 102–128; RESP 18–34; TEMP 97.6–99.8; O2SAT 91–100
[2017-02-27] MEDS ORDERED: ASPIRIN 325 MG TAB PO ONE (00:15)
[2017-02-27] MEDS: RESP: ALBUTEROL 2.5 MG/IPRATROPIUM 0.5 MG NEB (PRN) NEB (00:51)
[2017-02-27] MEDS: CHLORHEXIDINE GLUCONATE 2 % 1 PACK (2 CLOTHS) TOP SCH (04:00)
[2017-02-27] MEDS: INSULIN NovoLIN REGULAR SUPPLEMENTAL SCALE SQ SCH ×4 (04:45→17:10)
[2017-02-27] MEDS: FAMOTIDINE 20 MG/2 ML VIAL IV PUSH SCH ×2 (04:55→17:07)
[2017-02-27] MEDS: SODIUM CHLOR 0.9% 1000 ML INJ 1,000 ML IV SCH ×2 (05:00→13:19)
[2017-02-27] MEDS: RESP: ALBUTEROL 2.5 MG/IPRATROPIUM 0.5 MG NEB (SCH) NEB ×4 (05:20→21:28)
[2017-02-27 05:59] LABS: HEMATOCRIT 33.7 % (35.0-46.0); MEAN CELL VOLUME 90.5 FL (80.0-100.0); MEAN CORPUSCULAR HEMOGLOBIN 29.9 PG (27.0-34.0); PLATELET COUNT 328 TH/MM3 (150-450); RED BLOOD COUNT 3.72 MIL/MM3 (4.00-5.30); RED CELL DISTRIBUTION WIDTH 14.7 % (11.6-17.2); REVIEW FLAG FINAL; WHITE BLOOD COUNT 15.9 TH/MM3 (4.0-11.0)
[2017-02-27 06:06] LABS: APTT (PATIENT) 49.7 SEC (24.3-30.1); INTERNATIONAL NORMALIZED RATIO 3.7 RATIO; PROTHROMBIN TIME - PATIENT 43.5 SEC (9.8-11.6)
[2017-02-27 06:19] LABS: BICARBONATE 20.2 MEQ/L (21.0-32.0); POTASSIUM 3.8 MEQ/L (3.5-5.1)
[2017-02-27 06:24] LABS: HDL CHOLESTEROL 55.4 MG/DL (40.0-60.0)
--- NOTE | 2017-02-27 08:43 | MB ---
cc: SANDEEP JEAN BAPTISTE DO DATE OF CONSULTATION February 26, 2017 REASON FOR CONSULTATION Elevated troponin. HISTORY OF PRESENT ILLNESS Alaina Aguilar is an 81-year-old female who was brought to [facility] Emergency Room on February 26, 2017, due to altered mental status. She was last seen by her friend normal the day before. She was found today by one of her friends on the bathroom floor confused. Upon arrival here she was confused and not answering questions appropriately and she is overall a poor historian. She is unable to tell where she is. In speaking to her, it is difficult to ascertain but she does not appear to have any chest pain. When she arrived she was tachycardiac and had a rectal temperature of 101.7. PAST MEDICAL HISTORY 1. Coronary artery disease. 2. Hyperlipidemia. 3. COPD. 4. History of pulmonary embolism. 5. Carotid artery stenosis. 6. Lung cancer. PAST SURGICAL HISTORY 1. Right lung resection (2007). 2. Coronary artery bypass grafting (1998). 3. Hysterectomy. 4. Tonsillectomy. 5. Cataract surgery. 6. Right knee surgery x2 for ACL repair and meniscus repair. CARDIAC CATHETERIZATION (March 28, 2017) Left main 50% stenosis. LAD is patent with a 99% stenosis. Left circumflex occluded. Right circumflex occluded. MALHOTRA to LAD is patent but atretic throughout. SVG to diagonal patent with 50% stenosis. SVG to OM patent. SVG to PDA patent. ALLERGIES CEFUROXIME TREMADIN. MEDICATIONS 1. Coumadin 3 mg daily. 2. Lipitor 40 mg every night. 3. Toprol XL 50 mg daily. 4. Aspirin 81 mg daily, 5. Lasix 20 mg daily. 6. Symbicort 2 puffs every 12 hours. 7. Omeprazole 20 mg every night. FAMILY HISTORY Unable to obtain at this time. SOCIAL HISTORY The patient previously smoked but quit in 1996. Before that she smoked a pack of cigarettes a day since she was 17. REVIEW OF SYSTEMS Unable to obtain due to the patient's current status. PHYSICAL EXAMINATION VITAL SIGNS: Temperature 101.7, heart rate 95, blood pressure 125/58, respirations 22, pulse ox 98% on 2 liters. GENERAL: The patient is a frail, elderly female, acutely delirious. Head is atraumatic. Pupils are equal, round and reactive. NECK: Supple. No JVD at 45 degrees. No carotid bruits heard bilaterally. Carotid upstroke is brisk in nature. HEART: Tachycardiac but regular rate and rhythm. Positive first and second heart sounds. LUNGS: Clear to auscultation bilaterally. No wheezes, rales or rhonchi. ABDOMEN: Soft, nontender, nondistended. No organomegaly noted. EXTREMITIES: No clubbing, cyanosis or edema. Femoral and distal pulses intact bilaterally. NEUROLOGICALLY: The patient appears to have altered mentation but has positive reflexes. SKIN: Warm, dry and intact. LABORATORY FINDINGS White blood cell count 16.4, hemoglobin 11.9, hematocrit 36.2, platelets 447. INR 7.5, potassium 4.9, BUN 13, creatinine 0.75. Troponin 5.28. TSH 1.13. ELECTROCARDIOGRAM (February 26, 2017) Probable sinus rhythm, possible left atrial enlargement, mild elevation of ST's anteriorly, possible age undetermined anterior infarct. IMPRESSIONS 1. Mental status change/acute encephalopathy. 2. Possible sepsis. 3. Elevated troponins/N-STEMI. 4. Supratherapeutic coagulopathy. 5. History of pulmonary embolus. 6. History of coronary artery disease. RECOMMENDATIONS 1. Ms. Aguilar had an acute mental status change for an unknown reason at this time. She had a similar type episode back in February of 2016 for which they felt that she had a TIA versus CVA, although MRI showed no new infarct at that time. 2. EKG was read as an acute myocardial infarction and overall I feel that the EKG is definitely different than previous. I would not consider this a STEMI at this time. Although difficult to get answers from the patient, she stated earlier to the ER that she was having no chest pain. 3. My overall concern is her mental status change and possible stroke. 4. STAT echo was ordered and bedside review of the images show multiple [id number] and apical padilla with akinesis. This may be her baseline wall motion abnormalities as this could not be evaluated on previous echocardiogram from 2016. The other option is that this may be Takotsubo cardiomyopathy which may go along with her elevated troponins. 5. For now with her acute mental status change, I would not take her to the cardiac catheterization lab. 6. I discussed with critical care team and we will obtain an MRI of the brain to rule out possible CVA. 7. She should be treated for sepsis at this time. Further recommendations will be made based on the hospital course. Thank you for allowing me to see Alaina Aguilar. If there are any questions, please do not hesitate to call. Sandeep Jean Baptiste DO VGP/SSB /4:54 PM /9:29 AM
[2017-02-27] MEDS: VANCOMYCIN INJ 700 MG in SODIUM CHLOR 0.9% 250 ML INJ 250 ML IV SCH (10:32)
[2017-02-27] MEDS: DOCUSATE SODIUM 50 MG/SENNA 8.6 MG TAB PO SCH ×2 (10:33→21:00)
[2017-02-27] MEDS: CEFEPIME INJ 2,000 MG in SODIUM CHLORIDE 0.9% INJ 100 ML IV SCH ×4 (10:34→21:49)
--- NOTE | 2017-02-27 10:37 | RADRPT ---
EXAM DATE/TIME: 02/26/2017 19:27 [facility] COMPARISON: No previous studies available for comparison. INDICATIONS : Cerebrovascular accident. MEDICAL HISTORY : Gastroesophageal reflux disease. Hypercholesterolemia. Chronic obstructive pulmonary disease. Hyperte nsion. Ectopic . Arthritis. SURGICAL HISTORY : Tonsillectomy. Appendectomy. Cholecystectomy. Coronary artery bypass graft. Right lobectomy. Hyster ectomy. ACL repair. [place] surgery. ENCOUNTER: Initial ACUITY: 1 day PAIN SCORE: 0/10 LOCATION: Bilateral neck PEAK SYSTOLIC VELOCITIES (cm/sec): ICA/CCA RATIO: Right: 1.5 Left: 2.4 ICA: Right: 94 Left: 123 CCA: Right: 65 Left: 51 ECA: Right: 175 Left: Non visualized. VERTEBRAL: Right: 54 antegrade Left: 45 antegrade Elevated flow velocities and ICA/CCA ratios have been found to correlate with increased degrees of vessel stenosis, calculated as percentage of diameter relative to a normal segment of distal ICA/CCA FINDINGS: RIGHT CAROTID: No significant stenosis is visualized. Moderate calcific plaque is evident The waveforms are within normal limits.. There is no hemodynamically significant stenosis. LEFT CAROTID: Elevated ratios on the left normal velocities and moderate calcific plaque. VERTEBRAL ARTERIES: Antegrade flow is seen in both vertebral arteries. MISCELLANEOUS: None. CONCLUSION: Progression of the disease on the left. Ratio suggests [address] Repeat [address] angiogram would be of benefit. Seng Burch MD FACR on February 27, 2017 at 10:33 Board Certified Radiologist. This report was verified electronically.
--- NOTE | 2017-02-27 11:29 | PD.CARD.PN ---
Subjective Subjective Remarks No angina Objective Medications Current Medications Medications (Trade) Dose Ordered Sig/Melvin Route Start Time Stop Time Status Last Admin (NS Flush) 2 ml UNSCH PRN IV FLUSH 02/26/17 12:00 02/26/17 13:24 (Mag-Ox) 800 mg UNSCH PRN PO 02/26/17 14:00 Magnesium Sulfate 4 gm/Sodium Chloride 100 ml @ 50 mls/hr UNSCH PRN IV 02/26/17 14:00 Magnesium Sulfate 2 gm/Sodium Chloride 100 ml @ 50 mls/hr UNSCH PRN IV 02/26/17 14:00 Potassium Chloride 100 ml @ 50 mls/hr Q2H PRN IV 02/26/17 14:00 Potassium Chloride 100 ml @ 50 mls/hr Q2H PRN IV 02/26/17 14:00 Potassium Chloride 100 ml @ 50 mls/hr Q2H PRN IV 02/26/17 14:00 Potassium Chloride 100 ml @ 25 mls/hr UNSCH PRN IV 02/26/17 14:00 (K-Phos) 2,000 mg Q4H PRN PO 02/26/17 14:00 (K-Phos) 2,000 mg UNSCH PRN PO/TUBE 02/26/17 14:00 Potassium Phosphate 30 mmol/ Sodium Chloride 260 ml @ 42 mls/hr UNSCH PRN IV 02/26/17 14:00 Sodium Phosphate 30 mmol/Sodium Chloride 250 ml @ 42 mls/hr UNSCH PRN IV 02/26/17 14:00 (D50w (Vial) Inj) 25 ml UNSCH PRN IV PUSH 02/26/17 14:00 (NovoLIN R SUPPLEMENTAL SCALE) 1 Q6HR SQ 02/26/17 18:00 Sodium Chloride 1,000 ml @ 84 mls/hr [id number] IV 02/26/17 14:00 02/27/17 05:00 (Tylenol) 650 mg Q6H PRN PO 02/26/17 14:00 (Zofran Inj) 4 mg Q6H PRN IV PUSH 02/26/17 14:00 Miscellaneous Information 1 Q361D XX 02/26/17 14:00 (Chlorhexidine 2% Cloth) 3 pack Taper DAILY@04 TOP 02/27/17 04:00 02/23/18 03:59 02/27/17 04:00 (Chlorhexidine 2% Cloth) 3 pack UNSCH PRN TOP 02/26/17 14:00 (Becki-Colace) 1 tab BID PO 02/26/17 21:00 02/27/17 10:33 (Milk Of Magnesia Liq) 30 ml Q12H PRN PO 02/26/17 14:00 (Senokot) 17.2 mg Q12H PRN PO 02/26/17 14:00 (Dulcolax Supp) 10 mg DAILY PRN RECTAL 02/26/17 14:00 (Lactulose Liq) 30 ml DAILY PRN PO 02/26/17 14:00 Pharmacy Profile Note 0 ml @ 0 mls/hr UNSCH OTHER 02/26/17 16:00 (Pepcid Inj) 20 mg Q12H IV PUSH 02/26/17 17:00 02/27/17 04:55 Vancomycin HCl 700 mg/Sodium Chloride 257 ml @ 250 mls/hr Q18H IV 02/27/17 09:00 02/27/17 10:32 Miscellaneous Information SPECIFIC LAB TO BE DRAWN:VANCO TROUGH DATE TO BE DR... ONCE ONCE .XX 02/28/17 20:45 02/28/17 20:46 (Duoneb Neb) 1 ampule Q2HR NEB PRN NEB 02/27/17 00:15 02/27/17 00:51 (Duoneb Neb) 1 ampule Q6HR NEB NEB 02/27/17 04:00 02/27/17 09:11 Cefepime HCl 2000 mg/Sodium Chloride 100 ml @ 200 mls/hr Q12H IV 02/27/17 20:00 Vital Signs / I&O Vital Signs Date Time Temp Pulse Resp B/P (MAP) Pulse Ox O2 Delivery O2 Flow Rate FiO2 02/27/17 09:11 98 Nasal Cannula 2.00 02/27/17 06:00 104 02/27/17 06:00 99.0 104 20 100/58 (72) 100 02/27/17 05:00 99.0 105 22 115/67 (83) 100 02/27/17 04:00 99.0 113 22 109/68 (82) 100 02/27/17 04:00 113 02/27/17 03:00 99.0 113 28 109/68 (82) 100 02/27/17 02:00 99.8 111 23 130/71 (90) 97 02/27/17 02:00 111 02/27/17 01:00 99.8 108 21 135/83 (100) 100 02/27/17 00:00 119 02/26/17 23:00 98.9 110 28 124/73 (90) 100 02/26/17 22:00 98.9 118 32 110/69 (83) 100 02/26/17 22:00 118 02/26/17 21:18 100 Nasal Cannula 2.00 02/26/17 21:00 98.9 109 25 115/66 (82) 100 02/26/17 20:00 111 02/26/17 20:00 98.7 111 27 108/66 (80) 100 02/26/17 19:00 98.7 113 32 114/61 (78) 100 02/26/17 18:00 97.9 114 32 130/74 (92) 100 02/26/17 17:40 100 Nasal Cannula 2.00 02/26/17 17:00 97.9 118 29 130/70 (90) 100 02/26/17 16:38 02/26/17 15:13 96 20 121/58 (79) 100 Nasal Cannula 2.00 02/26/17 15:00 100 Nasal Cannula 2.00 02/26/17 14:21 120 24 118/59 (78) 100 Nasal Cannula 2.00 02/26/17 14:14 99.9 02/26/17 12:45 95 22 125/58 (80) 98 Nasal Cannula 2.00 02/26/17 11:57 101.7 100 Nasal Cannula 2.00 02/26/17 11:37 97.9 02/26/17 11:31 122 24 137/69 (91) 77 Room Air I/O 02/26/17 02/26/17 02/26/17 02/27/17 02/27/17 02/27/17 07:00 15:00 23:00 07:00 15:00 23:00 Intake Total 1100 ml 100 ml 1265 ml Output Total 400 ml 450 ml Balance 1100 ml -300 ml 815 ml Intake IV Total 1100 ml 100 ml 1265 ml Output Urine Total 400 ml 450 ml # Voids 0 # Bowel Movements 0 Physical Exam Alert Chest + rhonchi CV S1S2 tachy, RR Abdo soft Ext: warm/well perfused Echo Images reviewed: c/w apical ballooning syndrome Laboratory Laboratory Tests Test 02/26/17 11:40 02/26/17 11:41 02/26/17 12:30 02/26/17 12:41 White Blood Count 16.4 TH/MM3 Red Blood Count 4.03 MIL/MM3 Hemoglobin 11.9 GM/DL Hematocrit 36.2 % Mean Corpuscular Volume 89.9 FL Mean Corpuscular Hemoglobin 29.5 PG Mean Corpuscular Hemoglobin Concent 32.8 % Red Cell Distribution Width 14.5 % Platelet Count 447 TH/MM3 Mean Platelet Volume 6.6 FL Neutrophils (%) (Auto) 91.2 % Lymphocytes (%) (Auto) 4.9 % Monocytes (%) (Auto) 3.6 % Eosinophils (%) (Auto) 0.0 % Basophils (%) (Auto) 0.3 % Neutrophils # (Auto) 14.9 TH/MM3 Lymphocytes # (Auto) 0.8 TH/MM3 Monocytes # (Auto) 0.6 TH/MM3 Eosinophils # (Auto) 0.0 TH/MM3 Basophils # (Auto) 0.0 TH/MM3 CBC Comment DIFF FINAL Differential Comment Prothrombin Time 90.0 SEC Prothromb Time International Ratio 7.5 RATIO Blood Urea Nitrogen 13 MG/DL Creatinine 0.75 MG/DL Random Glucose 141 MG/DL Total Protein 7.0 GM/DL Albumin 2.8 GM/DL Calcium Level 8.7 MG/DL Alkaline Phosphatase 65 U/L Aspartate Amino Transf (AST/SGOT) 62 U/L Alanine Aminotransferase (ALT/SGPT) 37 U/L Total Bilirubin 0.5 MG/DL Sodium Level 131 MEQ/L Potassium Level 4.9 MEQ/L Chloride Level 96 MEQ/L Carbon Dioxide Level 24.5 MEQ/L Anion Gap 11 MEQ/L Estimat Glomerular Filtration Rate 74 ML/MIN Total Creatine Kinase 213 U/L Creatine Kinase MB 14.4 NG/ML Creatine Kinase MB % 6.8 % Troponin I 5.28 NG/ML B-Type Natriuretic Peptide 825 PG/ML Thyroid Stimulating Hormone 3rd Gen 1.130 uIU/ML Salicylates Level LESS THAN 1.7 MG/DL Acetaminophen Level LESS THAN 2.0 MCG/ML Ethyl Alcohol Level LESS THAN 3 MG/DL Lactic Acid Level 2.0 mmol/L Urine Color YELLOW Urine Turbidity HAZY Urine pH 6.0 Urine Specific [place] 1.015 Urine Protein TRACE mg/dL Urine Glucose (UA) NEG mg/dL Urine Ketones 10 mg/dL Urine Occult Blood TRACE Urine Nitrite NEG Urine Bilirubin NEG Urine Urobilinogen LESS THAN 2.0 MG/DL Urine Leukocyte Esterase LARGE Urine RBC 27 /hpf Urine WBC 16 /hpf Urine Squamous Epithelial Cells <1 /hpf Urine Bacteria OCC /hpf Urine Mucus FEW /lpf Microscopic Urinalysis Comment CATH-CULTURE IND Urine Opiates Screen NEG Urine Barbiturates Screen NEG Urine Amphetamines Screen NEG Urine Benzodiazepines Screen NEG Urine Cocaine Screen NEG Urine Cannabinoids Screen NEG Ammonia LESS THAN 10 MCMOL/L Test 02/26/17 16:45 02/26/17 19:53 02/27/17 02:26 02/27/17 04:50 Nasal Screen MRSA (PCR) MRSA NOT DETECTED Troponin I 7.49 NG/ML 5.81 NG/ML Blood Urea Nitrogen 21 MG/DL Creatinine 0.81 MG/DL Random Glucose 96 MG/DL Calcium Level 7.8 MG/DL Sodium Level 137 MEQ/L Potassium Level 3.8 MEQ/L Chloride Level 103 MEQ/L Carbon Dioxide Level 20.2 MEQ/L Anion Gap 14 MEQ/L Estimat Glomerular Filtration Rate 68 ML/MIN Triglycerides Level 74 MG/DL Cholesterol Level 119 MG/DL LDL Cholesterol 49 MG/DL HDL Cholesterol 55.4 MG/DL Cholesterol/HDL Ratio 2.14 RATIO Test 02/27/17 04:58 02/27/17 11:11 White Blood Count 15.9 TH/MM3 Red Blood Count 3.72 MIL/MM3 Hemoglobin 11.1 GM/DL Hematocrit 33.7 % Mean Corpuscular Volume 90.5 FL Mean Corpuscular Hemoglobin 29.9 PG Mean Corpuscular Hemoglobin Concent 33.0 % Red Cell Distribution Width 14.7 % Platelet Count 328 TH/MM3 Mean Platelet Volume 6.9 FL Prothrombin Time 43.5 SEC Prothromb Time International Ratio 3.7 RATIO Activated Partial Thromboplast Time 49.7 SEC Imaging Last 24 hours Impressions Carotid Artery Ultrasound 02/27/17 0000 Signed Impressions: Service Date/Time: Sunday, February 26, 2017 19:27 - CONCLUSION: Progression of the disease on the left. Ratio suggests [address] Repeat [address] angiogram would be of benefit. Seng Burch MD FACR Head CT 02/26/17 1153 Signed Impressions: Service Date/Time: Sunday, February 26, 2017 12:05 - CONCLUSION: Normal examination. Hubert Castillo MD Chest X-Ray 02/26/17 1153 Signed Impressions: Service Date/Time: Sunday, February 26, 2017 12:53 - CONCLUSION: No acute abnormality demonstrated. Right pneumonectomy. Left lung clear. 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
[2017-02-27] MEDS: DEXT 5%-NACL 0.9% 1000 ML INJ 1,000 ML IV SCH (17:08)
--- NOTE | 2017-02-27 18:33 | HHI.CCPN ---
Subjective Remarks/Hospital Course Hospital Course: This is an 81-year-old female who presents via EMS for altered mental status. She was last seen normal last night by friends per report. Unfortunately, the patient is quite altered and unable to participate in history, so any additional information with the patient is unobtainable. 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 She presents today with fever to 101, tachycardia to the 120s, and altered mental status. She is protecting her airway and arousable, but cannot provide additional information. Her UA is positive. She has leukocytosis to 16,000, normal renal function. She does of note have an elevated troponin at greater than 5. Her INR is greater than 7. In the emergency department she was given 2 L of normal saline fluid bolus for suspected sepsis. Blood cultures were drawn and she was given vancomycin and Zosyn. Head CT is unremarkable. CT abdomen and pelvis is also unremarkable. CT C-spine is negative for acute fracture or cervical disruption. Critical- care medicine is consulted to evaluate her encephalopathy, elevated troponins, possible sepsis. Of note she does have an EKG with questionable inferior Q waves, without overt STEMI criteria. Subjective: 02/27: mental status improved significantly. slightly disoriented, but history of dementia and confusion at home. calm. improved hemodynamics. Trop elevated, but not increasing. cardiology consult suggesting Takotsubo's as possible cause. still too hypotensive to add ACEI/BBlocker. cultures NGTD, but clinically improving. Objective Vital Signs Date Time Temp Pulse Resp B/P (MAP) Pulse Ox O2 Delivery O2 Flow Rate FiO2 02/27/17 18:00 120 02/27/17 18:00 32 110/68 (82) 97 02/27/17 16:00 98.0 02/27/17 09:11 Nasal Cannula 2.00 Intake and Output 02/27/17 02/27/17 02/28/17 08:00 16:00 00:00 Intake Total 1015 ml 357 ml 25 ml Output Total 450 ml 475 ml Balance 565 ml 357 ml -450 ml Result Diagram: 02/27/17 0458 02/27/17 045 Imaging Last Impressions Head CT 02/26/17 1153 Signed Impressions: Service Date/Time: Sunday, February 26, 2017 12:05 - CONCLUSION: Normal examination. Hubert Castillo MD Chest X-Ray 02/26/17 1153 Signed Impressions: Service Date/Time: Sunday, February 26, 2017 12:53 - CONCLUSION: No acute abnormality demonstrated. Right pneumonectomy. Left lung clear. Maurisio Saab MD Cervical Spine CT 02/26/17 0000 Signed Impressions: Service Date/Time: Sunday, February 26, 2017 12:05 - CONCLUSION: Multilevel degenerative facet disease and degenerative disc disease. No evidence of an acute fracture or spinal stenosis Hubert Castillo MD Abdomen/Pelvis CT 02/26/17 0000 Signed Impressions: Service Date/Time: Sunday, February 26, 2017 12:12 - CONCLUSION: Stable examination. No evidence of bowel obstruction or concerning solid organ mass. Dense atherosclerotic disease. Stable consolidation right lower lobe. Hubert Castillo MD Objective Remarks GENERAL: Frail elderly female, lying in bed, no distress. HEENT: Normocephalic. Atraumatic. Pupils equal, round, reactive, conjugate. Mucous membranes are moist NECK: Trachea is midline. There is no JVD. no nuchal rigidity or neck tenderness. CHEST: Equal chest rise. Clear to auscultation. Nasal cannula oxygen. CARDIOVASCULAR: normal rate, regular rhythm. Sinus by telemetry ABDOMEN: Soft, nontender, nondistended. No guarding. MUSCULOSKELETAL: Pulses 2+. No peripheral edema. No evidence of bruising NEUROLOGICAL: RASS 0. GCS 15. follows commands. oriented to person and place. intermittently confused. A/P Assessment and Plan Assessment: 81yF with new-onset acute metabolic encephalopathy, fever and tachycardia, and elevated troponins. Clinically improving. encephalopathy has improved. 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 not ready for ACEI/BBlocker. Tiny acute CVA likely not contributing to current mental status symptoms. Cultures NGTD, but given that she has clinically improved, would continue until further culture data returns. stable for transfer out of ICU and to hospitalist service. Plan by systems: Neurologic: Acute encephalopathy- probable metabolic - resolving. New Acute Tiny CVA - MRI brain with small cortical CVA - avoid sedating drugs - frequent neuro checks Respiratory: - wean o2 for goal spo2 > 90% - aggressive pulmonary toilet Cardiovascular: Possible Sepsis - improving. Sinus Tachycardia - resolving. Elevated Troponins Possible Takotsubo's cardiomyopathy - trend troponins: stable. - cardiology consult - 2d echo 02/26: EF 20-25% with takotsubo's type picture (apical ballooning, basilar sparing). - decrease mivf to 42 cc/hr. Renal: -- Strict I/Os FEN/GI: Acute dysphagia - mivf, d5NS @ 42 cc/hr. - formal swallow eval - ICU electrolyte protocol - daily BMP Heme/ID: Acute coagulopathy secondary to supratherapeutic coumadin dosing- improving. Possible Sepsis Urinary Tract Infection Reported History of prior Pulmonary Embolism - Vancomycin with pharmacy dosing - cefepime 2gm iv q8h - blood, urine cultures - no increased o2 requirement or cough to suggest pulmonary source of infection - Vit K 10 mg SQ once 02/26 - INR improving. continue to check daily. - no active bleeding at this time, will not actively reverse coagulopathy Endocrine: Hyperglycemia of critical illness -- SSI, medium scale, every 6 Prophylaxis: GI Prophylaxis pepcid IV DVT Prophylaxis -- SCDs - hold pharmacologic DVT Prophylaxis given elevated INR. will need coverage once INR improves. Lines: PIVs Dispo: transfer out of ICU. consult hospitalist service. Berto Yuen MD Feb 27, 2017 18:33
[2017-02-28] VITALS (16 sets, daily range): BP systolic 95–118; BP diastolic 46–73; PULSE 111–134; RESP 20–36; TEMP 97.2–98.6; O2SAT 95–100
[2017-02-28] MEDS: RESP: ALBUTEROL 2.5 MG/IPRATROPIUM 0.5 MG NEB (SCH) NEB ×4 (02:43→22:07)
[2017-02-28] MEDS: VANCOMYCIN INJ 700 MG in SODIUM CHLOR 0.9% 250 ML INJ 250 ML IV SCH ×2 (02:47→21:11)
[2017-02-28] MEDS: CHLORHEXIDINE GLUCONATE 2 % 1 PACK (2 CLOTHS) TOP SCH (04:00)
[2017-02-28 04:23] LABS: HEMATOCRIT 31.3 % (35.0-46.0); MEAN CELL VOLUME 90.8 FL (80.0-100.0); MEAN CORPUSCULAR HEMOGLOBIN 29.4 PG (27.0-34.0); MEAN CORPUSCULAR HGB CONC 32.4 % (32.0-36.0); PLATELET COUNT 300 TH/MM3 (150-450); RED BLOOD COUNT 3.45 MIL/MM3 (4.00-5.30); RED CELL DISTRIBUTION WIDTH 15.1 % (11.6-17.2); REVIEW FLAG FINAL; WHITE BLOOD COUNT 13.9 TH/MM3 (4.0-11.0)
[2017-02-28 04:37] LABS: APTT (PATIENT) 35.2 SEC (24.3-30.1); INTERNATIONAL NORMALIZED RATIO 1.6 RATIO; PROTHROMBIN TIME - PATIENT 18.1 SEC (9.8-11.6)
[2017-02-28 04:56] LABS: BICARBONATE 19.7 MEQ/L (21.0-32.0); POTASSIUM 3.2 MEQ/L (3.5-5.1)
[2017-02-28] MEDS: FAMOTIDINE 20 MG/2 ML VIAL IV PUSH SCH ×2 (05:11→16:52)
[2017-02-28] MEDS: INSULIN NovoLIN REGULAR SUPPLEMENTAL SCALE SQ SCH ×4 (05:15→17:33)
[2017-02-28] MEDS: DEXT 5%-NACL 0.9% 1000 ML INJ 1,000 ML IV SCH (07:21)
[2017-02-28] MEDS: DOCUSATE SODIUM 50 MG/SENNA 8.6 MG TAB PO SCH ×2 (07:34→21:00)
[2017-02-28] MEDS: CEFEPIME INJ 2,000 MG in SODIUM CHLORIDE 0.9% INJ 100 ML IV SCH ×2 (07:34→21:11)
[2017-02-28] MEDS: POTASSIUM CHLOR 20 MEQ PREMIX 100 ML IV PRN ×5 (07:35→21:11)
--- NOTE | 2017-02-28 08:34 | HHI.PR ---
Subjective Remarks Follow up encephalopathy, CVA. Patient remains confused. She denies pain currently. Reports occasional dyspnea. Denies numbness/tingling/weakness of her extremities. Objective Vitals Vital Signs Date Time Temp Pulse Resp B/P (MAP) Pulse Ox O2 Delivery O2 Flow Rate FiO2 02/28/17 06:00 118 02/28/17 06:00 129 29 105/51 (69) 98 02/28/17 05:00 118 24 117/71 (86) 99 02/28/17 04:00 98.6 121 36 101/62 (75) 95 02/28/17 04:00 121 02/28/17 03:00 131 28 118/66 (83) 98 02/28/17 02:00 115 23 117/72 (87) 97 02/28/17 02:00 115 02/28/17 01:00 111 22 104/65 (78) 100 02/28/17 00:00 98.2 114 22 111/68 (82) 100 02/28/17 00:00 114 02/27/17 23:00 120 20 116/67 (83) 99 02/27/17 22:00 98.3 122 27 115/65 (82) 98 02/27/17 22:00 122 02/27/17 21:31 100 Nasal Cannula 6.00 02/27/17 21:00 117 22 102/64 (77) 100 02/27/17 20:00 98.0 128 29 104/56 (72) 98 02/27/17 20:00 128 02/27/17 19:00 98.0 119 34 121/73 (89) 100 02/27/17 19:00 98.0 02/27/17 18:00 120 02/27/17 18:00 120 32 110/68 (82) 97 02/27/17 17:00 111 23 110/65 (80) 96 02/27/17 16:00 122 02/27/17 16:00 98.0 122 28 99/59 (72) 96 02/27/17 15:00 110 28 106/60 (75) 98 02/27/17 14:00 109 28 101/60 (74) 97 02/27/17 14:00 109 02/27/17 13:00 114 32 108/63 (78) 97 02/27/17 12:00 97.6 108 23 99/56 (70) 97 02/27/17 12:00 108 02/27/17 11:00 112 23 92/52 (65) 96 02/27/17 10:00 107 02/27/17 10:00 107 18 97/55 (69) 91 02/27/17 09:11 98 Nasal Cannula 2.00 02/27/17 09:00 102 18 104/62 (76) 100 I/O 02/27/17 02/27/17 02/27/17 02/28/17 02/28/17 02/28/17 07:00 15:00 23:00 07:00 15:00 23:00 Intake Total 1265 ml 357 ml 25 ml 100 ml Output Total 450 ml 475 ml 450 ml Balance 815 ml 357 ml -450 ml -350 ml Intake Oral 25 ml 0 ml IV Total 1265 ml 357 ml 100 ml Output Urine Total 450 ml 475 ml 450 ml # Bowel Movements 0 0 Result Diagram: 02/28/17 0336 02/28/17 033 Imaging Last Impressions Carotid Artery Ultrasound 02/27/17 0000 Signed Impressions: Service Date/Time: Sunday, February 26, 2017 19:27 - CONCLUSION: Progression of the disease on the left. Ratio suggests [address] . Repeat CT angiogram would be of benefit. Seng Burch MD FACR Head CT 02/26/17 115 Signed Impressions: Service Date/Time: Sunday, February 26, 2017 12:05 - CONCLUSION: Normal examination. Hubert Castillo MD Chest X-Ray 02/26/171152 Signed Impressions: Service Date/Time: Sunday, February 26, 2017 12:53 - CONCLUSION: No acute abnormality demonstrated. Right pneumonectomy. Left lung clear. Maurisio Saab MD Cervical Spine CT 02/26/17 0000 Signed Impressions: Service Date/Time: Sunday, February 26, 2017 12:05 - CONCLUSION: Multilevel degenerative facet disease and degenerative disc disease. No evidence of an acute fracture or spinal stenosis Hubert Castillo MD Brain MRI 02/26/17 0000 Signed Impressions: Service Date/Time: Sunday, February 26, 2017 15:27 - CONCLUSION: Tiny acute subcortical infarct of the left occipital lobe. Mild chronic white matter changes otherwise. Maurisio Saab MD Abdomen/Pelvis CT 02/26/17 0000 Signed Impressions: Service Date/Time: Sunday, February 26, 2017 12:12 - CONCLUSION: Stable examination. No evidence of bowel obstruction or concerning solid organ mass. Dense atherosclerotic disease. Stable consolidation right lower lobe. Hubert Castillo MD Objective Remarks General: Elderly female in no acute distress. Heart: Regular rate and rhythm. No murmur. Lungs: Clear to auscultation bilaterally. No wheezes, rales, or rhonchi. Breathing is nonlabored. Abdomen: Soft, nontender, nondistended. Extremities: No lower extremity edema. SCDs. Ecchymosis on bilateral forearms. Psych: Alert and oriented. Procedures None Urinary Catheter: No Vascular Central Line Catheter: No A/P Problem List: (1) Takotsubo cardiomyopathy ICD Code: I51.81 - Takotsubo syndrome (2) Elevated troponin I level ICD Code: R74.8 - Abnormal levels of other serum enzymes (3) Encephalopathy ICD Code: G93.40 - Encephalopathy, unspecified (4) Dysphagia ICD Code: R13.10 - Dysphagia, unspecified (5) Warfarin-induced coagulopathy ICD Code: D68.9 - Coagulation defect, unspecified; T45.515A - Adverse effect of anticoagulants, initial encounter (6) Acute CVA (cerebrovascular accident) ICD Code: I63.9 - Cerebral infarction, unspecified Status: Acute (7) Non-STEMI (non-ST elevated myocardial infarction) ICD Code: I21.4 - Non-ST elevation (NSTEMI) myocardial infarction Status: Acute (8) UTI (urinary tract infection) ICD Code: N39.0 - Urinary tract infection, site not specified Status: Acute Assessment and Plan 1. Acute encephalopathy: Probably metabolic. Still confused. 2. Acute CVA: MRI brain shows tiny cortical infarct. Continue neuro checks. Neurology consultation requested. PT/OT/ST. 3. Sinus tachycardia: Appreciate cardiology recommendations. 4. Elevated troponin, Takotsubo cardiomyopathy: Appreciate cardiology recommendations. 2-D echocardiogram showed ejection fraction of 20-25% with apical ballooning and basilar sparing. Caution with IV fluids. 5. Acute dysphagia: Appreciate speech therapy recommendations. 6. Acute coagulopathy secondary to warfarin: INR no subtherapeutic. No active bleeding. Received vitamin K subcutaneous 1 on 02/26/17. 7. Hyperglycemia of critical illness: Monitor Accu-Cheks and cover with sliding scale insulin. 8. GI prophylaxis: Pepcid. 9. DVT prophylaxis: SCDs. Add Lovenox as INR is subtherapeutic. Problem Qualifiers (1) UTI (urinary tract infection): Qualified Codes: N39.0 - Urinary tract infection, site not specified Wilfrid Mcelroy MD Feb 28, 2017 08:34
--- NOTE | 2017-02-28 12:00 | PD.CARD.PN ---
Subjective Subjective Remarks No angina Objective Medications Current Medications Medications (Trade) Dose Ordered Sig/Melvin Route Start Time Stop Time Status Last Admin (NS Flush) 2 ml UNSCH PRN IV FLUSH 02/26/17 12:00 02/26/17 13:24 (Mag-Ox) 800 mg UNSCH PRN PO 02/26/17 14:00 Magnesium Sulfate 4 gm/Sodium Chloride 100 ml @ 50 mls/hr UNSCH PRN IV 02/26/17 14:00 Magnesium Sulfate 2 gm/Sodium Chloride 100 ml @ 50 mls/hr UNSCH PRN IV 02/26/17 14:00 Potassium Chloride 100 ml @ 50 mls/hr Q2H PRN IV 02/26/17 14:00 02/28/17 11:07 Potassium Chloride 100 ml @ 50 mls/hr Q2H PRN IV 02/26/17 14:00 Potassium Chloride 100 ml @ 50 mls/hr Q2H PRN IV 02/26/17 14:00 Potassium Chloride 100 ml @ 25 mls/hr UNSCH PRN IV 02/26/17 14:00 (K-Phos) 2,000 mg Q4H PRN PO 02/26/17 14:00 (K-Phos) 2,000 mg UNSCH PRN PO/TUBE 02/26/17 14:00 Potassium Phosphate 30 mmol/ Sodium Chloride 260 ml @ 42 mls/hr UNSCH PRN IV 02/26/17 14:00 Sodium Phosphate 30 mmol/Sodium Chloride 250 ml @ 42 mls/hr UNSCH PRN IV 02/26/17 14:00 (D50w (Vial) Inj) 25 ml UNSCH PRN IV PUSH 02/26/17 14:00 (NovoLIN R SUPPLEMENTAL SCALE) 1 Q6HR SQ 02/26/17 18:00 (Tylenol) 650 mg Q6H PRN PO 02/26/17 14:00 (Zofran Inj) 4 mg Q6H PRN IV PUSH 02/26/17 14:00 Miscellaneous Information 1 Q361D XX 02/26/17 14:00 (Chlorhexidine 2% Cloth) 3 pack Taper DAILY@04 TOP 02/27/17 04:00 02/23/18 03:59 02/28/17 04:00 (Chlorhexidine 2% Cloth) 3 pack UNSCH PRN TOP 02/26/17 14:00 (Becki-Colace) 1 tab BID PO 02/26/17 21:00 02/27/17 10:33 (Milk Of Magnesia Liq) 30 ml Q12H PRN PO 02/26/17 14:00 (Senokot) 17.2 mg Q12H PRN PO 02/26/17 14:00 (Dulcolax Supp) 10 mg DAILY PRN RECTAL 02/26/17 14:00 (Lactulose Liq) 30 ml DAILY PRN PO 02/26/17 14:00 Pharmacy Profile Note 0 ml @ 0 mls/hr UNSCH OTHER 02/26/17 16:00 (Pepcid Inj) 20 mg Q12H IV PUSH 02/26/17 17:00 02/28/17 05:11 Vancomycin HCl 700 mg/Sodium Chloride 257 ml @ 250 mls/hr Q18H IV 02/27/17 09:00 02/28/17 02:47 Miscellaneous Information SPECIFIC LAB TO BE DRAWN:VANCO TROUGH DATE TO BE DR... ONCE ONCE .XX 02/28/17 20:45 02/28/17 20:46 (Duoneb Neb) 1 ampule Q2HR NEB PRN NEB 02/27/17 00:15 02/27/17 00:51 (Duoneb Neb) 1 ampule Q6HR NEB NEB 02/27/17 04:00 02/28/17 02:43 Cefepime HCl 2000 mg/Sodium Chloride 100 ml @ 200 mls/hr Q12H IV 02/27/17 20:00 02/28/17 07:34 Dextrose/Sodium Chloride 1,000 ml @ 42 mls/hr [id number] IV 02/27/17 16:00 02/28/17 07:21 Vital Signs / I&O Vital Signs Date Time Temp Pulse Resp B/P (MAP) Pulse Ox O2 Delivery O2 Flow Rate FiO2 02/28/17 08:00 97.9 126 22 104/73 (83) 100 02/28/17 08:00 126 02/28/17 06:00 118 02/28/17 06:00 129 29 105/51 (69) 98 02/28/17 05:00 118 24 117/71 (86) 99 02/28/17 04:00 98.6 121 36 101/62 (75) 95 02/28/17 04:00 121 02/28/17 03:00 131 28 118/66 (83) 98 02/28/17 02:00 115 23 117/72 (87) 97 02/28/17 02:00 115 02/28/17 01:00 111 22 104/65 (78) 100 02/28/17 00:00 98.2 114 22 111/68 (82) 100 02/28/17 00:00 114 02/27/17 23:00 120 20 116/67 (83) 99 02/27/17 22:00 98.3 122 27 115/65 (82) 98 02/27/17 22:00 122 02/27/17 21:31 100 Nasal Cannula 6.00 02/27/17 21:00 117 22 102/64 (77) 100 02/27/17 20:00 98.0 128 29 104/56 (72) 98 02/27/17 20:00 128 02/27/17 19:00 98.0 119 34 121/73 (89) 100 02/27/17 19:00 98.0 02/27/17 18:00 120 02/27/17 18:00 120 32 110/68 (82) 97 02/27/17 17:00 111 23 110/65 (80) 96 02/27/17 16:00 122 02/27/17 16:00 98.0 122 28 99/59 (72) 96 02/27/17 15:00 110 28 106/60 (75) 98 02/27/17 14:00 109 28 101/60 (74) 97 02/27/17 14:00 109 02/27/17 13:00 114 32 108/63 (78) 97 02/27/17 12:00 97.6 108 23 99/56 (70) 97 02/27/17 12:00 108 I/O 02/27/17 02/27/17 02/27/17 02/28/17 02/28/17 02/28/17 07:00 15:00 23:00 07:00 15:00 23:00 Intake Total 1265 ml 357 ml 25 ml 100 ml Output Total 450 ml 475 ml 450 ml Balance 815 ml 357 ml -450 ml -350 ml Intake Oral 25 ml 0 ml IV Total 1265 ml 357 ml 100 ml Output Urine Total 450 ml 475 ml 450 ml # Bowel Movements 0 0 Physical Exam Alert Chest + rhonchi CV S1S2 tachy, RR Abdo soft Ext: warm/well perfused Tele: marked sinus tach Laboratory Laboratory Tests Test 02/27/17 18:20 02/28/17 03:36 Troponin I 5.86 NG/ML White Blood Count 13.9 TH/MM3 Red Blood Count 3.45 MIL/MM3 Hemoglobin 10.1 GM/DL Hematocrit 31.3 % Mean Corpuscular Volume 90.8 FL Mean Corpuscular Hemoglobin 29.4 PG Mean Corpuscular Hemoglobin Concent 32.4 % Red Cell Distribution Width 15.1 % Platelet Count 300 TH/MM3 Mean Platelet Volume 7.1 FL Prothrombin Time 18.1 SEC Prothromb Time International Ratio 1.6 RATIO Activated Partial Thromboplast Time 35.2 SEC Blood Urea Nitrogen 18 MG/DL Creatinine 0.85 MG/DL Random Glucose 118 MG/DL Calcium Level 7.8 MG/DL Sodium Level 142 MEQ/L Potassium Level 3.2 MEQ/L Chloride Level 110 MEQ/L Carbon Dioxide Level 19.7 MEQ/L Anion Gap 12 MEQ/L Estimat Glomerular Filtration Rate 64 ML/MIN Assessment and Plan Problem List: (1) Elevated troponin ICD Codes: R74.8 - Abnormal levels of other serum enzymes (2) Apical ballooning syndrome ICD Codes: I51.81 - Takotsubo syndrome (3) Sinus tachycardia ICD Codes: R00.0 - Tachycardia, unspecified Assessment and Plan add BB Jose F Diaz MD Feb 28, 2017 12:00
[2017-02-28] MEDS ORDERED: PILL SPLITTER OTHER PRN (12:15)
[2017-02-28] MEDS: RESP: ALBUTEROL 2.5 MG/IPRATROPIUM 0.5 MG NEB (PRN) NEB (12:18)
[2017-02-28] MEDS ORDERED: METOPROLOL TARTRATE 25 MG TAB PO SCH (14:00)
[2017-02-28] MEDS: METOPROLOL TARTRATE 5 MG/5 ML VIAL IV PUSH SCH ×2 (15:04→21:12)
--- NOTE | 2017-02-28 16:15 | PD.CONS ---
History of Present Illness Service Neurology Consult Requested By medical Reason for Consult stroke Primary Care Physician Arben Patton MD History of Present Illness 81-year-old female who presents via EMS for altered mental status. She presented with fever to 101, tachycardia to the 120s, and altered mental status. She is protecting her airway and arousable, but cannot provide additional information. Her UA is positive. She has leukocytosis to 16,000, normal renal function. INR is greater than 7. In the emergency department she was given 2 L of normal saline fluid bolus for suspected sepsis. Blood cultures were drawn and she was given vancomycin and Zosyn. Head CT is unremarkable. pt unable to give accurate medical hx 2/2 mental status; chart reviewed. on non-rebreather in the icu. elevated trops, seen by cardiology. denies cp, headache, focal weakness. Review of Systems ROS Limitations: as above Past Family Social History Allergies: Coded Allergies: cefuroxime (Unverified Adverse Reaction, Severe, SEVERE ABD PAIN, 02/26/17) Uncoded Allergies: TREMADIN (Allergy, Unknown, ., 03/11/16) Past Medical History unknown and unobtainable secondary to the clinical condition of the patient. Per chart review from 10/2015: coronary artery disease hyperlipidemia hypertension frequent UTI history of pulmonary emboli on Coumadin GERD Past Surgical History unknown and unobtainable secondary to the clinical condition of the patient. Per chart review from 10/2015: right pneumonectomy CABG Active Ordered Medications See MAR Family History unknown and unobtainable secondary to the clinical condition of the patient. Social History unknown and unobtainable secondary to the clinical condition of the patient. Review of Systems All other ROS: ROS reviewed as documented in chart Past Family Social History Allergies: Coded Allergies: cefuroxime (Unverified Adverse Reaction, Severe, SEVERE ABD PAIN, 02/26/17) Uncoded Allergies: TREMADIN (Allergy, Unknown, ., 03/11/16) Active Ordered Medications Current Medications Medications (Trade) Dose Ordered Sig/Melvin Route Start Time Stop Time Status Last Admin (NS Flush) 2 ml UNSCH PRN IV FLUSH 02/26/17 12:00 02/26/17 13:24 (Mag-Ox) 800 mg UNSCH PRN PO 02/26/17 14:00 Magnesium Sulfate 4 gm/Sodium Chloride 100 ml @ 50 mls/hr UNSCH PRN IV 02/26/17 14:00 Magnesium Sulfate 2 gm/Sodium Chloride 100 ml @ 50 mls/hr UNSCH PRN IV 02/26/17 14:00 Potassium Chloride 100 ml @ 50 mls/hr Q2H PRN IV 02/26/17 14:00 02/28/17 11:07 Potassium Chloride 100 ml @ 50 mls/hr Q2H PRN IV 02/26/17 14:00 Potassium Chloride 100 ml @ 50 mls/hr Q2H PRN IV 02/26/17 14:00 Potassium Chloride 100 ml @ 25 mls/hr UNSCH PRN IV 02/26/17 14:00 (K-Phos) 2,000 mg Q4H PRN PO 02/26/17 14:00 (K-Phos) 2,000 mg UNSCH PRN PO/TUBE 02/26/17 14:00 Potassium Phosphate 30 mmol/ Sodium Chloride 260 ml @ 42 mls/hr UNSCH PRN IV 02/26/17 14:00 Sodium Phosphate 30 mmol/Sodium Chloride 250 ml @ 42 mls/hr UNSCH PRN IV 02/26/17 14:00 (D50w (Vial) Inj) 25 ml UNSCH PRN IV PUSH 02/26/17 14:00 (NovoLIN R SUPPLEMENTAL SCALE) 1 Q6HR SQ 02/26/17 18:00 (Tylenol) 650 mg Q6H PRN PO 02/26/17 14:00 (Zofran Inj) 4 mg Q6H PRN IV PUSH 02/26/17 14:00 Miscellaneous Information 1 Q361D XX 02/26/17 14:00 (Chlorhexidine 2% Cloth) 3 pack Taper DAILY@04 TOP 02/27/17 04:00 02/23/18 03:59 02/28/17 04:00 (Chlorhexidine 2% Cloth) 3 pack UNSCH PRN TOP 02/26/17 14:00 (Becki-Colace) 1 tab BID PO 02/26/17 21:00 02/27/17 10:33 (Milk Of Magnesia Liq) 30 ml Q12H PRN PO 02/26/17 14:00 (Senokot) 17.2 mg Q12H PRN PO 02/26/17 14:00 (Dulcolax Supp) 10 mg DAILY PRN RECTAL 02/26/17 14:00 (Lactulose Liq) 30 ml DAILY PRN PO 02/26/17 14:00 Pharmacy Profile Note 0 ml @ 0 mls/hr UNSCH OTHER 02/26/17 16:00 Vancomycin HCl 700 mg/Sodium Chloride 257 ml @ 250 mls/hr Q18H IV 02/27/17 09:00 02/28/17 02:47 Miscellaneous Information SPECIFIC LAB TO BE DRAWN:VANCO TROUGH DATE TO BE DR... ONCE ONCE .XX 02/28/17 20:45 02/28/17 20:46 (Duoneb Neb) 1 ampule Q2HR NEB PRN NEB 02/27/17 00:15 02/28/17 12:18 (Duoneb Neb) 1 ampule Q6HR NEB NEB 02/27/17 04:00 02/28/17 16:06 Cefepime HCl 2000 mg/Sodium Chloride 100 ml @ 200 mls/hr Q12H IV 02/27/17 20:00 02/28/17 07:34 Dextrose/Sodium Chloride 1,000 ml @ 42 mls/hr [id number] IV 02/27/17 16:00 02/28/17 07:21 (Lopressor Inj) 2.5 mg Q8HR IV PUSH 02/28/17 14:00 02/28/17 15:04 (Pill Splitter) 1 ea UNSCH PRN OTHER 02/28/17 12:15 (Pepcid Inj) 10 mg Q12H IV PUSH 02/28/17 17:00 Exam I&O / VS Vital Signs Date Time Temp Pulse Resp B/P (MAP) Pulse Ox O2 Delivery O2 Flow Rate FiO2 02/28/17 14:00 134 02/28/17 12:00 132 02/28/17 12:00 98.6 132 24 108/62 (77) 100 02/28/17 10:00 124 02/28/17 08:00 97.9 126 22 104/73 (83) 100 02/28/17 08:00 126 02/28/17 06:00 118 02/28/17 06:00 129 29 105/51 (69) 98 02/28/17 05:00 118 24 117/71 (86) 99 02/28/17 04:00 98.6 121 36 101/62 (75) 95 02/28/17 04:00 121 02/28/17 03:00 131 28 118/66 (83) 98 02/28/17 02:00 115 23 117/72 (87) 97 02/28/17 02:00 115 02/28/17 01:00 111 22 104/65 (78) 100 02/28/17 00:00 98.2 114 22 111/68 (82) 100 02/28/17 00:00 114 02/27/17 23:00 120 20 116/67 (83) 99 02/27/17 22:00 98.3 122 27 115/65 (82) 98 02/27/17 22:00 122 02/27/17 21:31 100 Nasal Cannula 6.00 02/27/17 21:00 117 22 102/64 (77) 100 02/27/17 20:00 98.0 128 29 104/56 (72) 98 02/27/17 20:00 128 02/27/17 19:00 98.0 119 34 121/73 (89) 100 02/27/17 19:00 98.0 02/27/17 18:00 120 02/27/17 18:00 120 32 110/68 (82) 97 02/27/17 17:00 111 23 110/65 (80) 96 Neurologic: Alert Psychiatric: Cooperative Exam Comments alert, on non-rebreather, ox 1-2, follows, mildly confused, slightly tachypneic , able to name simple objects, no nuchal rigidity, vff, ou 3-2mm, wu to gravity , no clonus, planterflexor Review/Management Diagnosis/Plan: (1) Acute encephalopathy ICD Codes: G93.40 - Encephalopathy, unspecified Status: Acute Plan: possibly 2/2 uti; also with elevated trops and mild dyspnea; cardiopulmonary could be another cause/SIRS. tachy/tacypneic mri jt reviewed- very tiny left occipital region appearing infarct recs seems to be getting more alert check eeg tiny infarct is not clinically significant. cleared from neurology for any necessary cardiac/medical procedure follow exam (2) Non-STEMI (non-ST elevated myocardial infarction) ICD Codes: I21.4 - Non-ST elevation (NSTEMI) myocardial infarction Status: Acute (3) Warfarin-induced coagulopathy ICD Codes: D68.9 - Coagulation defect, unspecified; T45.515A - Adverse effect of anticoagulants, initial encounter Status: Acute (4) UTI (urinary tract infection) ICD Codes: N39.0 - Urinary tract infection, site not specified Status: Acute Problem Qualifiers (1) UTI (urinary tract infection): Qualified Codes: N39.0 - Urinary tract infection, site not specified See Haque MD Feb 28, 2017 16:15
[2017-02-28] MEDS ORDERED: PHARMACY ORDERED LAB ONE (20:45)
[2017-03-01] VITALS (17 sets, daily range): BP systolic 91–115; BP diastolic 43–66; PULSE 103–125; RESP 19–52; TEMP 97.2–97.8; O2SAT 94–100
[2017-03-01] MEDS: RESP: ALBUTEROL 2.5 MG/IPRATROPIUM 0.5 MG NEB (SCH) NEB ×4 (02:57→20:19)
[2017-03-01 04:33] LABS: HEMATOCRIT 32.7 % (35.0-46.0); MEAN CELL VOLUME 92.9 FL (80.0-100.0); MEAN CORPUSCULAR HGB CONC 32.3 % (32.0-36.0); PLATELET COUNT 333 TH/MM3 (150-450); RED BLOOD COUNT 3.52 MIL/MM3 (4.00-5.30); RED CELL DISTRIBUTION WIDTH 15.5 % (11.6-17.2); REVIEW FLAG FINAL; WHITE BLOOD COUNT 17.8 TH/MM3 (4.0-11.0)
[2017-03-01 04:43] LABS: APTT (PATIENT) 25.7 SEC (24.3-30.1); INTERNATIONAL NORMALIZED RATIO 1.5 RATIO; PROTHROMBIN TIME - PATIENT 16.8 SEC (9.8-11.6)
[2017-03-01 04:59] LABS: BICARBONATE 18.6 MEQ/L (21.0-32.0); POTASSIUM 5.4 MEQ/L (3.5-5.1)
[2017-03-01] MEDS: CHLORHEXIDINE GLUCONATE 2 % 1 PACK (2 CLOTHS) TOP SCH (05:00)
[2017-03-01] MEDS: RESP: ALBUTEROL 2.5 MG/IPRATROPIUM 0.5 MG NEB (PRN) NEB (05:17)
[2017-03-01] MEDS: METOPROLOL TARTRATE 5 MG/5 ML VIAL IV PUSH SCH ×3 (05:40→17:10)
[2017-03-01] MEDS: FAMOTIDINE 20 MG/2 ML VIAL IV PUSH SCH ×2 (05:40→17:10)
[2017-03-01] MEDS: INSULIN NovoLIN REGULAR SUPPLEMENTAL SCALE SQ SCH ×4 (06:00→17:22)
[2017-03-01] MEDS: DOCUSATE SODIUM 50 MG/SENNA 8.6 MG TAB PO SCH (08:15)
[2017-03-01] MEDS: CEFEPIME INJ 2,000 MG in SODIUM CHLORIDE 0.9% INJ 100 ML IV SCH ×2 (08:15→20:52)
--- NOTE | 2017-03-01 10:18 | HHI.PR ---
Subjective Remarks Follow-up acute CVA/metabolic encephalopathy 03/01/17-patient seen and examined, alert but confused. Only oriented to self, not date, place or time. HR elevated Objective Vitals Vital Signs Date Time Temp Pulse Resp B/P (MAP) Pulse Ox O2 Delivery O2 Flow Rate FiO2 03/01/17 08:10 94 Nasal Cannula 4.00 03/01/17 08:00 97.8 118 22 108/59 (75) 99 03/01/17 08:00 118 03/01/17 04:00 97.4 125 20 98/66 (77) 99 03/01/17 04:00 125 03/01/17 02:58 99 Nasal Cannula 4.00 03/01/17 02:00 116 03/01/17 00:00 97.8 122 20 97/61 (73) 99 03/01/17 00:00 117 02/28/17 22:05 98 Nasal Cannula 3.00 02/28/17 22:00 111 02/28/17 20:00 97.2 131 20 95/61 (72) 99 02/28/17 20:00 131 02/28/17 18:00 121 02/28/17 16:00 121 02/28/17 16:00 98.2 121 20 106/46 (66) 98 02/28/17 14:00 134 02/28/17 12:00 132 02/28/17 12:00 98.6 132 24 108/62 (77) 100 I/O 02/28/17 02/28/17 02/28/17 03/01/17 03/01/17 03/01/17 07:00 15:00 23:00 07:00 15:00 23:00 Intake Total 100 ml 824 ml 661 ml 160 ml Output Total 450 ml Balance -350 ml 824 ml 661 ml 160 ml Intake Oral 0 ml IV Total 100 ml 824 ml 661 ml 160 ml Output Urine Total 450 ml # Voids 4 2 1 Result Diagram: 03/01/1741103/01/17411 Imaging Last Impressions Carotid Artery Ultrasound 02/27/17 0000 Signed Impressions: Service Date/Time: Sunday, February 26, 2017 19:27 - CONCLUSION: Progression of the disease on the left. Ratio suggests [address] Repeat [address] angiogram would be of benefit. Seng Burch MD FACR Head CT 02/26/17 1153 Signed Impressions: Service Date/Time: Sunday, February 26, 2017 12:05 - CONCLUSION: Normal examination. Hubert Castillo MD Chest X-Ray 02/26/17 1153 Signed Impressions: Service Date/Time: Sunday, February 26, 2017 12:53 - CONCLUSION: No acute abnormality demonstrated. Right pneumonectomy. Left lung clear. Maurisio Saab MD Cervical Spine CT 02/26/17 0000 Signed Impressions: Service Date/Time: Sunday, February 26, 2017 12:05 - CONCLUSION: Multilevel degenerative facet disease and degenerative disc disease. No evidence of an acute fracture or spinal stenosis Hubert Castillo MD Brain MRI 02/26/17 0000 Signed Impressions: Service Date/Time: Sunday, February 26, 2017 15:27 - CONCLUSION: Tiny acute subcortical infarct of the left occipital lobe. Mild chronic white matter changes otherwise. Maurisio Saab MD Abdomen/Pelvis CT 02/26/17 0000 Signed Impressions: Service Date/Time: Sunday, February 26, 2017 12:12 - CONCLUSION: Stable examination. No evidence of bowel obstruction or concerning solid organ mass. Dense atherosclerotic disease. Stable consolidation right lower lobe. Hubert Castillo MD Objective Remarks GENERAL: NAD SKIN: Warm and dry. HEAD: Normocephalic. EYES: No scleral icterus. No injection or drainage. NECK: Supple, trachea midline. No JVD or lymphadenopathy. CARDIOVASCULAR: Regular rate and rhythm without murmurs, gallops, or rubs. RESPIRATORY: Breath sounds equal bilaterally. No accessory muscle use. GASTROINTESTINAL: Abdomen soft, non-tender, nondistended. MUSCULOSKELETAL: No cyanosis, or edema. BACK: Nontender without obvious deformity. No CVA tenderness. 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 - Takotsubo syndrome (2) Elevated troponin I level ICD Code: R74.8 - Abnormal levels of other serum enzymes (3) Encephalopathy ICD Code: G93.40 - Encephalopathy, unspecified (4) Dysphagia ICD Code: R13.10 - Dysphagia, unspecified (5) Warfarin-induced coagulopathy ICD Code: D68.9 - Coagulation defect, unspecified; T45.515A - Adverse effect of anticoagulants, initial encounter Status: Acute (6) Acute CVA (cerebrovascular accident) ICD Code: I63.9 - Cerebral infarction, unspecified Status: Acute (7) Non-STEMI (non-ST elevated myocardial infarction) ICD Code: I21.4 - Non-ST elevation (NSTEMI) myocardial infarction Status: Acute (8) UTI (urinary tract infection) ICD Code: N39.0 - Urinary tract infection, site not specified Status: Resolved Assessment and Plan 81-year-old female with 1. Acute CVA: MRI brain shows tiny cortical infarct. Continue neuro checks. Appreciate input from neurology. Continue with PT/OT/ST. 2. Acute encephalopathy: Probably metabolic. Still confused. 3. Sinus tachycardia: Continue with Lopressor push 2.5 mg every 8 when necessary. Appreciate input from cardiology 4. Elevated troponin, Takotsubo cardiomyopathy: Appreciate cardiology recommendations. 2-D echocardiogram showed ejection fraction of 20-25% with apical ballooning and basilar sparing. 5. Acute dysphagia: Currently nothing by mouth, speech therapy follow-up. Will need barium swallow study 6. Acute coagulopathy secondary to warfarin: Now resolved s/p vitamin K subcutaneous 1 on 02/26/17. 7. Hyperglycemia of critical illness: Monitor Accu-Cheks and cover with sliding scale insulin. 8. Leukocytosis Was felt to be due to UTI, however urine culture negative Blood culture negative to date Currently on vancomycin and cefepime, which will discontinued 9. GI prophylaxis: Pepcid. 10. DVT prophylaxis: SCDs. Lovenox Problem Qualifiers (1) UTI (urinary tract infection): Qualified Codes: N39.0 - Urinary tract infection, site not specified Julio Morales MD Mar 01, 2017 10:18
[2017-03-01] MEDS ORDERED: LORazepam 2 MG/ML VIAL IV PUSH ONE (11:15)
--- NOTE | 2017-03-01 11:15 | PD.CARD.PN ---
Subjective Subjective Remarks No angina, no complaints Objective Medications Current Medications Medications (Trade) Dose Ordered Sig/Melvin Route Start Time Stop Time Status Last Admin (NS Flush) 2 ml UNSCH PRN IV FLUSH 02/26/17 12:00 02/26/17 13:24 (Mag-Ox) 800 mg UNSCH PRN PO 02/26/17 14:00 Magnesium Sulfate 4 gm/Sodium Chloride 100 ml @ 50 mls/hr UNSCH PRN IV 02/26/17 14:00 Magnesium Sulfate 2 gm/Sodium Chloride 100 ml @ 50 mls/hr UNSCH PRN IV 02/26/17 14:00 Potassium Chloride 100 ml @ 50 mls/hr Q2H PRN IV 02/26/17 14:00 02/28/17 21:11 Potassium Chloride 100 ml @ 50 mls/hr Q2H PRN IV 02/26/17 14:00 Potassium Chloride 100 ml @ 50 mls/hr Q2H PRN IV 02/26/17 14:00 Potassium Chloride 100 ml @ 25 mls/hr UNSCH PRN IV 02/26/17 14:00 (K-Phos) 2,000 mg Q4H PRN PO 02/26/17 14:00 (K-Phos) 2,000 mg UNSCH PRN PO/TUBE 02/26/17 14:00 Potassium Phosphate 30 mmol/ Sodium Chloride 260 ml @ 42 mls/hr UNSCH PRN IV 02/26/17 14:00 Sodium Phosphate 30 mmol/Sodium Chloride 250 ml @ 42 mls/hr UNSCH PRN IV 02/26/17 14:00 (D50w (Vial) Inj) 25 ml UNSCH PRN IV PUSH 02/26/17 14:00 (NovoLIN R SUPPLEMENTAL SCALE) 1 Q6HR SQ 02/26/17 18:00 (Tylenol) 650 mg Q6H PRN PO 02/26/17 14:00 (Zofran Inj) 4 mg Q6H PRN IV PUSH 02/26/17 14:00 Miscellaneous Information 1 Q361D XX 02/26/17 14:00 (Chlorhexidine 2% Cloth) 3 pack Taper DAILY@04 TOP 02/27/17 04:00 02/23/18 03:59 03/01/17 05:00 (Chlorhexidine 2% Cloth) 3 pack UNSCH PRN TOP 02/26/17 14:00 (Milk Of Magnesia Liq) 30 ml Q12H PRN PO 02/26/17 14:00 (Dulcolax Supp) 10 mg DAILY PRN RECTAL 02/26/17 14:00 Pharmacy Profile Note 0 ml @ 0 mls/hr UNSCH OTHER 02/26/17 16:00 Vancomycin HCl 700 mg/Sodium Chloride 257 ml @ 250 mls/hr Q18H IV 02/27/17 09:00 02/28/17 21:11 (Duoneb Neb) 1 ampule Q2HR NEB PRN NEB 02/27/17 00:15 03/01/17 05:17 (Duoneb Neb) 1 ampule Q6HR NEB NEB 02/27/17 04:00 03/01/17 08:07 Cefepime HCl 2000 mg/Sodium Chloride 100 ml @ 200 mls/hr Q12H IV 02/27/17 20:00 03/01/17 08:15 Dextrose/Sodium Chloride 1,000 ml @ 42 mls/hr [id number] IV 02/27/17 16:00 02/28/17 07:21 (Lopressor Inj) 2.5 mg Q8HR IV PUSH 02/28/17 14:00 03/01/17 05:40 (Pill Splitter) 1 ea UNSCH PRN OTHER 02/28/17 12:15 (Pepcid Inj) 10 mg Q12H IV PUSH 02/28/17 17:00 03/01/17 05:40 Miscellaneous Information SPECIFIC LAB TO BE DRAWN:VANCO TROUGH DATE TO BE DR... ONCE ONCE .XX 03/01/17 14:45 03/01/17 14:46 (Ativan Inj) 1 mg ONCE ONCE IV PUSH 03/01/17 11:15 03/01/17 11:16 Vital Signs / I&O Vital Signs Date Time Temp Pulse Resp B/P (MAP) Pulse Ox O2 Delivery O2 Flow Rate FiO2 03/01/17 10:00 119 03/01/17 08:10 94 Nasal Cannula 4.00 03/01/17 08:00 97.8 118 22 108/59 (75) 99 03/01/17 08:00 118 03/01/17 04:00 97.4 125 20 98/66 (77) 99 03/01/17 04:00 125 03/01/17 02:58 99 Nasal Cannula 4.00 03/01/17 02:00 116 03/01/17 00:00 97.8 122 20 97/61 (73) 99 03/01/17 00:00 117 02/28/17 22:05 98 Nasal Cannula 3.00 02/28/17 22:00 111 02/28/17 20:00 97.2 131 20 95/61 (72) 99 02/28/17 20:00 131 02/28/17 18:00 121 02/28/17 16:00 121 02/28/17 16:00 98.2 121 20 106/46 (66) 98 02/28/17 14:00 134 02/28/17 12:00 132 02/28/17 12:00 98.6 132 24 108/62 (77) 100 I/O 02/28/17 02/28/17 02/28/17 03/01/17 03/01/17 03/01/17 07:00 15:00 23:00 07:00 15:00 23:00 Intake Total 100 ml 824 ml 661 ml 160 ml Output Total 450 ml Balance -350 ml 824 ml 661 ml 160 ml Intake Oral 0 ml IV Total 100 ml 824 ml 661 ml 160 ml Output Urine Total 450 ml # Voids 4 2 1 Physical Exam Alert Chest + rhonchi CV S1S2 tachy, RR Abdo soft Ext: warm/well perfused Tele: marked sinus tach Laboratory Laboratory Tests Test 03/01/17 04:12 White Blood Count 17.8 TH/MM3 Red Blood Count 3.52 MIL/MM3 Hemoglobin 10.6 GM/DL Hematocrit 32.7 % Mean Corpuscular Volume 92.9 FL Mean Corpuscular Hemoglobin 30.0 PG Mean Corpuscular Hemoglobin Concent 32.3 % Red Cell Distribution Width 15.5 % Platelet Count 333 TH/MM3 Mean Platelet Volume 7.2 FL Erythrocyte Sedimentation Rate 45 mm/hr Prothrombin Time 16.8 SEC Prothromb Time International Ratio 1.5 RATIO Activated Partial Thromboplast Time 25.7 SEC Blood Urea Nitrogen 22 MG/DL Creatinine 0.90 MG/DL Random Glucose 131 MG/DL Calcium Level 8.3 MG/DL Sodium Level 145 MEQ/L Potassium Level 5.4 MEQ/L Chloride Level 117 MEQ/L Carbon Dioxide Level 18.6 MEQ/L Anion Gap 9 MEQ/L Estimat Glomerular Filtration Rate 60 ML/MIN Assessment and Plan Problem List: (1) Elevated troponin ICD Codes: R74.8 - Abnormal levels of other serum enzymes (2) Apical ballooning syndrome ICD Codes: I51.81 - Takotsubo syndrome (3) Sinus tachycardia ICD Codes: R00.0 - Tachycardia, unspecified Plan: increase metoprolol to 5mg IVP q6h. Change to metoprolol 25mg q8h when able to tolerate PO. Jose F Diaz MD Mar 01, 2017 11:15
[2017-03-01] MEDS: DEXT 5%-NACL 0.9% 1000 ML INJ 1,000 ML IV SCH (12:27)
[2017-03-01] MEDS ORDERED: PHARMACY ORDERED LAB ONE (14:45)
[2017-03-01] MEDS: VANCOMYCIN INJ 700 MG in SODIUM CHLOR 0.9% 250 ML INJ 250 ML IV SCH (15:25)
--- NOTE | 2017-03-01 16:05 | MG ---
cc: NISSA GONZALEZ Lab No: [id number] Date: 03/01/2017 Age: Sex: F Race: TECHNIQUE 17-channel EEG. DESCRIPTION: The background rhythm reveals quite a bit of muscle artifact which obscures much of the tracing. The underlying rhythm appears to be slow in the theta range. However, the study is severely compromised due to severe muscle artifact. INTERPRETATION Severely limited study on the basis of diffuse muscle artifact. MD JACKIE Guevara/MEHUL /3:54 PM /4:07 PM
[2017-03-01] MEDS: SODIUM CHLORIDE 0.9% IV SCH (23:47)
[2017-03-01] MEDS: ACYCLOVIR IV SCH (23:47)
[2017-03-02] VITALS (21 sets, daily range): BP systolic 93–120; BP diastolic 57–80; PULSE 102–119; RESP 18–40; TEMP 97.8–98.4; O2SAT 79–100
[2017-03-02] MEDS: METOPROLOL TARTRATE 5 MG/5 ML VIAL IV PUSH SCH ×4 (00:28→17:43)
[2017-03-02] MEDS: CHLORHEXIDINE GLUCONATE 2 % 1 PACK (2 CLOTHS) TOP SCH (00:32)
[2017-03-02] MEDS: RESP: ALBUTEROL 2.5 MG/IPRATROPIUM 0.5 MG NEB (SCH) NEB ×4 (04:13→21:43)
[2017-03-02] MEDS: FAMOTIDINE 20 MG/2 ML VIAL IV PUSH SCH ×2 (05:25→17:43)
[2017-03-02] MEDS: INSULIN NovoLIN REGULAR SUPPLEMENTAL SCALE SQ SCH ×4 (05:40→17:43)
[2017-03-02 05:49] LABS: HEMATOCRIT 33.1 % (35.0-46.0); MEAN CELL VOLUME 93.9 FL (80.0-100.0); MEAN CORPUSCULAR HEMOGLOBIN 30.4 PG (27.0-34.0); MEAN CORPUSCULAR HGB CONC 32.4 % (32.0-36.0); PLATELET COUNT 269 TH/MM3 (150-450); RED BLOOD COUNT 3.52 MIL/MM3 (4.00-5.30); RED CELL DISTRIBUTION WIDTH 16.2 % (11.6-17.2); REVIEW FLAG FINAL; WHITE BLOOD COUNT 17.6 TH/MM3 (4.0-11.0)
[2017-03-02 05:57] LABS: APTT (PATIENT) 27.7 SEC (24.3-30.1); INTERNATIONAL NORMALIZED RATIO 1.5 RATIO; PROTHROMBIN TIME - PATIENT 17.1 SEC (9.8-11.6)
[2017-03-02] MEDS: ACYCLOVIR IV SCH ×2 (06:05→17:44)
[2017-03-02] MEDS: SODIUM CHLORIDE 0.9% IV SCH ×2 (06:05→17:44)
[2017-03-02 06:09] LABS: POTASSIUM 5.5 MEQ/L (3.5-5.1)
[2017-03-02] MEDS: VANCOMYCIN INJ 700 MG in SODIUM CHLOR 0.9% 250 ML INJ 250 ML IV SCH (08:49)
[2017-03-02] MEDS: CEFEPIME INJ 2,000 MG in SODIUM CHLORIDE 0.9% INJ 100 ML IV SCH (08:52)
--- NOTE | 2017-03-02 08:58 | HHI.PR ---
Review/Management Diagnosis/Plan: (1) Acute encephalopathy ICD Codes: G93.40 - Encephalopathy, unspecified Status: Acute Plan: possibly 2/2 uti; also with elevated trops and mild dyspnea; cardiopulmonary could be another cause/SIRS. tachy/tacypneic mri brain reviewed- very tiny left occipital region appearing infarct tiny infarct is not clinically significant. cleared from neurology for any necessary cardiac/medical procedure recs check csf iv acyclovir for now follow exam (2) Non-STEMI (non-ST elevated myocardial infarction) ICD Codes: I21.4 - Non-ST elevation (NSTEMI) myocardial infarction Status: Acute (3) Warfarin-induced coagulopathy ICD Codes: D68.9 - Coagulation defect, unspecified; T45.515A - Adverse effect of anticoagulants, initial encounter Status: Acute (4) UTI (urinary tract infection) ICD Codes: N39.0 - Urinary tract infection, site not specified Status: Resolved Subjective Subjective Comments No acute events reported No headache No chest pain No dyspnea Active Medications Current Medications Medications (Trade) Dose Ordered Sig/Melvin Route Start Time Stop Time Status Last Admin (NS Flush) 2 ml UNSCH PRN IV FLUSH 02/26/17 12:00 02/26/17 13:24 (Mag-Ox) 800 mg UNSCH PRN PO 02/26/17 14:00 Magnesium Sulfate 4 gm/Sodium Chloride 100 ml @ 50 mls/hr UNSCH PRN IV 02/26/17 14:00 Magnesium Sulfate 2 gm/Sodium Chloride 100 ml @ 50 mls/hr UNSCH PRN IV 02/26/17 14:00 Potassium Chloride 100 ml @ 50 mls/hr Q2H PRN IV 02/26/17 14:00 02/28/17 21:11 Potassium Chloride 100 ml @ 50 mls/hr Q2H PRN IV 02/26/17 14:00 Potassium Chloride 100 ml @ 50 mls/hr Q2H PRN IV 02/26/17 14:00 Potassium Chloride 100 ml @ 25 mls/hr UNSCH PRN IV 02/26/17 14:00 (K-Phos) 2,000 mg Q4H PRN PO 02/26/17 14:00 (K-Phos) 2,000 mg UNSCH PRN PO/TUBE 02/26/17 14:00 Potassium Phosphate 30 mmol/ Sodium Chloride 260 ml @ 42 mls/hr UNSCH PRN IV 02/26/17 14:00 Sodium Phosphate 30 mmol/Sodium Chloride 250 ml @ 42 mls/hr UNSCH PRN IV 02/26/17 14:00 (D50w (Vial) Inj) 25 ml UNSCH PRN IV PUSH 02/26/17 14:00 (NovoLIN R SUPPLEMENTAL SCALE) 1 Q6HR SQ 02/26/17 18:00 (Tylenol) 650 mg Q6H PRN PO 02/26/17 14:00 (Zofran Inj) 4 mg Q6H PRN IV PUSH 02/26/17 14:00 Miscellaneous Information 1 Q361D XX 02/26/17 14:00 (Chlorhexidine 2% Cloth) 3 pack Taper DAILY@04 TOP 02/27/17 04:00 02/23/18 03:59 03/02/17 00:32 (Chlorhexidine 2% Cloth) 3 pack UNSCH PRN TOP 02/26/17 14:00 (Milk Of Magnesia Liq) 30 ml Q12H PRN PO 02/26/17 14:00 (Dulcolax Supp) 10 mg DAILY PRN RECTAL 02/26/17 14:00 Pharmacy Profile Note 0 ml @ 0 mls/hr UNSCH OTHER 02/26/17 16:00 Vancomycin HCl 700 mg/Sodium Chloride 257 ml @ 250 mls/hr Q18H IV 02/27/17 09:00 03/02/17 08:49 (Duoneb Neb) 1 ampule Q2HR NEB PRN NEB 02/27/17 00:15 03/01/17 05:17 (Duoneb Neb) 1 ampule Q6HR NEB NEB 02/27/17 04:00 03/02/17 04:13 Cefepime HCl 2000 mg/Sodium Chloride 100 ml @ 200 mls/hr Q12H IV 02/27/17 20:00 03/02/17 08:52 Dextrose/Sodium Chloride 1,000 ml @ 42 mls/hr [id number] IV 02/27/17 16:00 03/01/17 12:27 (Pill Splitter) 1 ea UNSCH PRN OTHER 02/28/17 12:15 (Pepcid Inj) 10 mg Q12H IV PUSH 02/28/17 17:00 03/02/17 05:25 (Lopressor Inj) 5 mg Q6HR IV PUSH 03/01/17 12:00 03/02/17 05:25 Miscellaneous Information SPECIFIC LAB TO BE DRAWN:VANCOMYCIN TROUGH DATE TO... ONCE ONCE .XX 03/03/17 02:45 03/03/17 02:46 Acyclovir Sodium 450 mg/Sodium Chloride 100 ml @ 100 mls/hr Q8H IV 03/01/17 23:00 03/02/17 06:05 Allergies Allergies Coded Allergies cefuroxime (Unverified Adverse Reaction, Severe, SEVERE ABD PAIN, 02/26/17) Uncoded Allergies TREMADIN ( Allergy, Unknown, ., 03/11/16) Review of Systems All other ROS: ROS reviewed as documented in chart Exam I&O / VS 03/02/17 03/02/17 03/03/17 15:00 23:00 07:00 Intake Total 100 ml Output Total 3 ml Balance 97 ml IV Total 100 ml Output Urine Total 3 ml Stool Total 0 ml Vital Signs Date Time Temp Pulse Resp B/P (MAP) Pulse Ox O2 Delivery O2 Flow Rate FiO2 03/02/17 06:00 103 03/02/17 04:00 97.8 109 20 109/68 (82) 99 03/02/17 04:00 109 03/02/17 04:00 Nasal Cannula 4.00 03/02/17 02:00 104 03/02/17 00:00 109 03/02/17 00:00 98.2 111 18 109/68 (82) 98 03/02/17 00:00 Nasal Cannula 4.00 03/01/17 22:00 109 03/01/17 20:24 100 Nasal Cannula 4.00 03/01/17 20:22 100 Simple Mask 6.00 03/01/17 20:00 97.5 103 22 99/43 (61) 96 03/01/17 20:00 107 03/01/17 18:00 104 03/01/17 17:13 97.4 108 24 91/52 (65) 99 03/01/17 16:00 111 03/01/17 14:00 104 03/01/17 12:07 97.2 118 19 115/64 (81) 98 03/01/17 12:00 118 03/01/17 10:00 119 Neurologic: Alert Psychiatric: Cooperative Exam Comments alert, on non-rebreather, ox 1-2, follows, mildly confused, slightly tachypneic , able to name simple objects, no nuchal rigidity, vff, ou 3-2mm, wu to gravity , no clonus, planterflexor Objective Micro and Labs Laboratory Tests Test 03/01/17 14:40 03/02/17 05:11 Vancomycin Level Trough 18.1 White Blood Count 17.6 Red Blood Count 3.52 Hemoglobin 10.7 Hematocrit 33.1 Mean Corpuscular Volume 93.9 Mean Corpuscular Hemoglobin 30.4 Mean Corpuscular Hemoglobin Concent 32.4 Red Cell Distribution Width 16.2 Platelet Count 269 Mean Platelet Volume 7.8 Prothrombin Time 17.1 Prothromb Time International Ratio 1.5 Activated Partial Thromboplast Time 27.7 Blood Urea Nitrogen 31 Creatinine 1.28 Random Glucose 91 Calcium Level 8.3 Sodium Level 148 Potassium Level 5.5 Chloride Level 120 Carbon Dioxide Level 18.0 Anion Gap 10 Estimat Glomerular Filtration Rate 40 Date/Time Source Procedure Growth Status 02/26/17 12:30 Blood Peripheral Aerobic Blood Culture - Preliminary NO GROWTH IN 3 DAYS Resulted 02/26/17 12:30 Blood Peripheral Anaerobic Blood Culture - Preliminary NO GROWTH IN 3 DAYS Resulted 02/26/17 12:30 Urine Catheterized Urine Urine Culture - Final NO GROWTH IN 48 HOURS. Complete Problem Qualifiers (1) UTI (urinary tract infection): Qualified Codes: N39.0 - Urinary tract infection, site not specified See Haque MD Mar 02, 2017 08:58
--- NOTE | 2017-03-02 09:35 | HHI.PR ---
Subjective Remarks Follow-up acute CVA/metabolic encephalopathy 03/01/17-patient seen and examined, alert but confused. Only oriented to self, not date, place or time. HR elevated 03/02/17-patient seen and examined, lethargic and confused. Does not follow command. Heart rate slightly up. Currently afebrile. Nothing by mouth. Objective Vitals Vital Signs Date Time Temp Pulse Resp B/P (MAP) Pulse Ox O2 Delivery O2 Flow Rate FiO2 03/02/17 06:00 103 03/02/17 04:00 97.8 109 20 109/68 (82) 99 03/02/17 04:00 109 03/02/17 04:00 Nasal Cannula 4.00 03/02/17 02:00 104 03/02/17 00:00 109 03/02/17 00:00 98.2 111 18 109/68 (82) 98 03/02/17 00:00 Nasal Cannula 4.00 03/01/17 22:00 109 03/01/17 20:24 100 Nasal Cannula 4.00 03/01/17 20:22 100 Simple Mask 6.00 03/01/17 20:00 97.5 103 22 99/43 (61) 96 03/01/17 20:00 107 03/01/17 18:00 104 03/01/17 17:13 97.4 108 24 91/52 (65) 99 03/01/17 16:00 111 03/01/17 14:00 104 03/01/17 12:07 97.2 118 19 115/64 (81) 98 03/01/17 12:00 118 03/01/17 10:00 119 I/O 03/01/17 03/01/17 03/01/17 03/02/17 03/02/17 03/02/17 07:00 15:00 23:00 07:00 15:00 23:00 Intake Total 661 ml 160 ml 735 ml 765 ml 100 ml Output Total 3 ml Balance 661 ml 160 ml 735 ml 765 ml 97 ml IV Total 661 ml 160 ml 735 ml 765 ml 100 ml Output Urine Total 3 ml Stool Total 0 ml # Voids 2 1 3 Result Diagram: 03/02/17 0511 03/02/17 0511 Imaging Last Impressions Carotid Artery Ultrasound 02/27/17 0000 Signed Impressions: Service Date/Time: Sunday, February 26, 2017 19:27 - CONCLUSION: Progression of the disease on the left. Ratio suggests [address] Repeat [address] angiogram would be of benefit. Seng Burch MD FACR Head CT 02/26/17 1153 Signed Impressions: Service Date/Time: Sunday, February 26, 2017 12:05 - CONCLUSION: Normal examination. Hubert Castillo MD Chest X-Ray 02/26/17 1153 Signed Impressions: Service Date/Time: Sunday, February 26, 2017 12:53 - CONCLUSION: No acute abnormality demonstrated. Right pneumonectomy. Left lung clear. Maurisio Saab MD Cervical Spine CT 02/26/17 0000 Signed Impressions: Service Date/Time: Sunday, February 26, 2017 12:05 - CONCLUSION: Multilevel degenerative facet disease and degenerative disc disease. No evidence of an acute fracture or spinal stenosis Hubert Castillo MD Brain MRI 02/26/17 0000 Signed Impressions: Service Date/Time: Sunday, February 26, 2017 15:27 - CONCLUSION: Tiny acute subcortical infarct of the left occipital lobe. Mild chronic white matter changes otherwise. Maurisio Saab MD Abdomen/Pelvis CT 02/26/17 0000 Signed Impressions: Service Date/Time: Sunday, February 26, 2017 12:12 - CONCLUSION: Stable examination. No evidence of bowel obstruction or concerning solid organ mass. Dense atherosclerotic disease. Stable consolidation right lower lobe. Hubert Castillo MD Objective Remarks GENERAL: NAD SKIN: Warm and dry. HEAD: Normocephalic. EYES: No scleral icterus. No injection or drainage. NECK: Supple, trachea midline. No JVD or lymphadenopathy. CARDIOVASCULAR: Regular rate and rhythm without murmurs, gallops, or rubs. RESPIRATORY: Breath sounds equal bilaterally. No accessory muscle use. GASTROINTESTINAL: Abdomen soft, non-tender, nondistended. MUSCULOSKELETAL: No cyanosis, or edema. BACK: Nontender without obvious deformity. No CVA tenderness. 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 - Takotsubo syndrome (2) Elevated troponin I level ICD Code: R74.8 - Abnormal levels of other serum enzymes (3) Encephalopathy ICD Code: G93.40 - Encephalopathy, unspecified (4) Dysphagia ICD Code: R13.10 - Dysphagia, unspecified (5) Warfarin-induced coagulopathy ICD Code: D68.9 - Coagulation defect, unspecified; T45.515A - Adverse effect of anticoagulants, initial encounter Status: Acute (6) Acute CVA (cerebrovascular accident) ICD Code: I63.9 - Cerebral infarction, unspecified Status: Acute (7) Non-STEMI (non-ST elevated myocardial infarction) ICD Code: I21.4 - Non-ST elevation (NSTEMI) myocardial infarction Status: Acute (8) UTI (urinary tract infection) ICD Code: N39.0 - Urinary tract infection, site not specified Status: Resolved Assessment and Plan 81-year-old female with 1. Acute CVA: MRI brain shows tiny cortical infarct. Continue neuro checks. Appreciate input from neurology. Continue with PT/OT/ST. 2. Acute metabolic encephalopathy: Check CSF, IV acyclovir started by neurology today 03/02/17 3. Sinus tachycardia: Continue with Lopressor push 2.5 mg every 8 when necessary. Appreciate input from cardiology 4. Elevated troponin, Takotsubo cardiomyopathy: Appreciate cardiology recommendations. 2-D echocardiogram showed ejection fraction of 20-25% with apical ballooning and basilar sparing. 5. Acute dysphagia: Currently nothing by mouth, speech therapy follow-up. Will need barium swallow study 6. Acute coagulopathy secondary to warfarin: Now resolved s/p vitamin K subcutaneous 1 on 02/26/17. 7. Hyperglycemia of critical illness: Monitor Accu-Cheks and cover with sliding scale insulin. 8. Leukocytosis Was felt to be due to UTI, however urine culture negative Blood culture negative to date Currently on vancomycin and cefepime 9. GI prophylaxis: Pepcid. 10. DVT prophylaxis: SCDs. Lovenox Problem Qualifiers (1) UTI (urinary tract infection): Qualified Codes: N39.0 - Urinary tract infection, site not specified Julio Morales MD Mar 02, 2017 09:35
[2017-03-02] MEDS: DEXT 5%-NACL 0.9% 1000 ML INJ 1,000 ML IV SCH (12:52)
[2017-03-02 16:45] LABS: CSF LYMPHOCYTES 54 %; CSF MONOCYTES 46 %
[2017-03-02 16:47] LABS: GROSS BLOOD TUBE #1 0 (0); GROSS BLOOD TUBE #2 0 (0); GROSS BLOOD TUBE #3 0 (0); SUPERNATE COLOR TUBE #1 CLEAR (CLEAR); SUPERNATE COLOR TUBE #2 CLEAR (CLEAR); SUPERNATE COLOR TUBE #3 CLEAR (CLEAR); VOLUME TUBE # 4 8.5 ML
[2017-03-02 16:48] LABS: CSF NEUTROPHILS 0 %; SUPERNATE COLOR TUBE #4 CLEAR (CLEAR); WBC TUBE #4 10 /MM3 (0-10)
[2017-03-03] VITALS (22 sets, daily range): BP systolic 120–132; BP diastolic 63–74; PULSE 97–111; RESP 20–30; TEMP 97.8–98.3; O2SAT 96–100
[2017-03-03] MEDS: METOPROLOL TARTRATE 5 MG/5 ML VIAL IV PUSH SCH ×4 (00:18→17:10)
[2017-03-03] MEDS ORDERED: PHARMACY ORDERED LAB ONE (02:45)
[2017-03-03] MEDS: CHLORHEXIDINE GLUCONATE 2 % 1 PACK (2 CLOTHS) TOP SCH (04:00)
[2017-03-03 05:11] LABS: HEMATOCRIT 33.6 % (35.0-46.0); MEAN CELL VOLUME 92.6 FL (80.0-100.0); MEAN CORPUSCULAR HEMOGLOBIN 30.5 PG (27.0-34.0); PLATELET COUNT 179 TH/MM3 (150-450); RED BLOOD COUNT 3.63 MIL/MM3 (4.00-5.30); RED CELL DISTRIBUTION WIDTH 15.9 % (11.6-17.2); REVIEW FLAG FINAL; WHITE BLOOD COUNT 17.2 TH/MM3 (4.0-11.0)
[2017-03-03] MEDS: SODIUM CHLORIDE 0.9% IV SCH ×2 (05:18→17:10)
[2017-03-03] MEDS: FAMOTIDINE 20 MG/2 ML VIAL IV PUSH SCH ×2 (05:18→17:10)
[2017-03-03] MEDS: ACYCLOVIR IV SCH ×2 (05:18→17:10)
[2017-03-03 05:24] LABS: APTT (PATIENT) 30.4 SEC (24.3-30.1); INTERNATIONAL NORMALIZED RATIO 1.6 RATIO; PROTHROMBIN TIME - PATIENT 17.5 SEC (9.8-11.6)
[2017-03-03 05:31] LABS: BICARBONATE 17.3 MEQ/L (21.0-32.0)
[2017-03-03] MEDS: INSULIN NovoLIN REGULAR SUPPLEMENTAL SCALE SQ SCH ×2 (06:00)
--- NOTE | 2017-03-03 08:44 | HHI.PR ---
Subjective Remarks Follow-up acute CVA/metabolic encephalopathy 03/01/17-patient seen and examined, alert but confused. Only oriented to self, not date, place or time. HR elevated 03/02/17-patient seen and examined, lethargic and confused. Does not follow command. Heart rate slightly up. Currently afebrile. Nothing by mouth. 03/03/17-patient seen and examined, still lethargic and does not follow command. HSV 1 and 2 pending as well as CSF VDRL Objective Vitals Vital Signs Date Time Temp Pulse Resp B/P (MAP) Pulse Ox O2 Delivery O2 Flow Rate FiO2 03/03/17 08:12 97 Nasal Cannula 2.00 03/03/17 06:00 98 03/03/17 04:42 100 Nasal Cannula 4.00 03/03/17 04:00 105 03/03/17 04:00 97.9 105 21 125/64 (84) 98 03/03/17 02:00 97 03/03/17 00:00 98.1 109 27 125/67 (86) 98 03/03/17 00:00 109 03/02/17 23:54 98 Nasal Cannula 4.00 03/02/17 22:00 110 03/02/17 20:07 98 Nasal Cannula 4.00 03/02/17 20:00 107 03/02/17 20:00 98.2 107 21 107/57 (74) 98 03/02/17 19:00 Nasal Cannula 2.00 96 03/02/17 18:00 102 03/02/17 16:00 105 03/02/17 16:00 98.4 105 22 100 03/02/17 15:00 107 20 98 03/02/17 14:39 108 21 115/63 (80) 99 03/02/17 14:00 108 40 03/02/17 14:00 108 03/02/17 13:00 109 20 98 03/02/17 12:00 109 03/02/17 12:00 98.3 109 24 120/80 (93) 99 03/02/17 11:00 119 26 03/02/17 10:00 111 26 79 03/02/17 10:00 111 03/02/17 09:18 Nasal Cannula 4.00 03/02/17 09:00 117 23 I/O 11/9/17 03/02/17 03/02/17 03/03/17 03/03/17 03/03/17 07:00 15:00 23:00 07:00 15:00 23:00 Intake Total 765 ml 785 ml 100 ml 557 ml 113 ml Output Total 3 ml 4 ml Balance 765 ml 782 ml 96 ml 557 ml 113 ml Intake Oral 0 ml IV Total 765 ml 785 ml 100 ml 557 ml 113 ml Output Urine Total 3 ml 4 ml Stool Total 0 ml 0 ml # Voids 3 # Bowel Movements 0 Result Diagram: 03/03/17 0432 03/03/17 0432 Imaging Last Impressions Carotid Artery Ultrasound 02/27/17 0000 Signed Impressions: Service Date/Time: Sunday, February 26, 2017 19:27 - CONCLUSION: Progression of the disease on the left. Ratio suggests [address] Repeat [address] angiogram would be of benefit. Seng Burch MD FACR Head CT 02/26/17 1153 Signed Impressions: Service Date/Time: Sunday, February 26, 2017 12:05 - CONCLUSION: Normal examination. Hubert Castillo MD Chest X-Ray 02/26/171152 Signed Impressions: Service Date/Time: Sunday, February 26, 2017 12:53 - CONCLUSION: No acute abnormality demonstrated. Right pneumonectomy. Left lung clear. Maurisio Saab MD Cervical Spine CT 02/26/17 0000 Signed Impressions: Service Date/Time: Sunday, February 26, 2017 12:05 - CONCLUSION: Multilevel degenerative facet disease and degenerative disc disease. No evidence of an acute fracture or spinal stenosis Hubert Castillo MD Brain MRI 02/26/17 0000 Signed Impressions: Service Date/Time: Sunday, February 26, 2017 15:27 - CONCLUSION: Tiny acute subcortical infarct of the left occipital lobe. Mild chronic white matter changes otherwise. Maurisio Saab MD Abdomen/Pelvis CT 02/26/17 0000 Signed Impressions: Service Date/Time: Sunday, February 26, 2017 12:12 - CONCLUSION: Stable examination. No evidence of bowel obstruction or concerning solid organ mass. Dense atherosclerotic disease. Stable consolidation right lower lobe. Hubert Castillo MD Objective Remarks GENERAL: Lethargic and does not follow command SKIN: Warm and dry. HEAD: Normocephalic. EYES: No scleral icterus. No injection or drainage. NECK: Supple, trachea midline. No JVD or lymphadenopathy. CARDIOVASCULAR: Regular rate and rhythm without murmurs, gallops, or rubs. RESPIRATORY: Breath sounds equal bilaterally. No accessory muscle use. GASTROINTESTINAL: Abdomen soft, non-tender, nondistended. MUSCULOSKELETAL: No cyanosis, or edema. BACK: Nontender without obvious deformity. No CVA tenderness. 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 - Takotsubo syndrome (2) Elevated troponin I level ICD Code: R74.8 - Abnormal levels of other serum enzymes (3) Encephalopathy ICD Code: G93.40 - Encephalopathy, unspecified (4) Dysphagia ICD Code: R13.10 - Dysphagia, unspecified (5) Warfarin-induced coagulopathy ICD Code: D68.9 - Coagulation defect, unspecified; T45.515A - Adverse effect of anticoagulants, initial encounter Status: Acute (6) Acute CVA (cerebrovascular accident) ICD Code: I63.9 - Cerebral infarction, unspecified Status: Acute (7) Non-STEMI (non-ST elevated myocardial infarction) ICD Code: I21.4 - Non-ST elevation (NSTEMI) myocardial infarction Status: Acute (8) UTI (urinary tract infection) ICD Code: N39.0 - Urinary tract infection, site not specified Status: Resolved Assessment and Plan 81-year-old female with 1. Acute CVA: MRI brain shows tiny cortical infarct. Continue neuro checks. Appreciate input from neurology. Continue with PT/OT/ST. 2. Acute metabolic encephalopathy: CSF VDRL as well as HSV 1 and 2 pending, continue IV acyclovir . Consult palliative care medicine and consider hospice 3. Sinus tachycardia: Continue with Lopressor push 2.5 mg every 8 when necessary. Appreciate input from cardiology 4. Elevated troponin, Takotsubo cardiomyopathy: Appreciate cardiology recommendations. 2-D echocardiogram showed ejection fraction of 20-25% with apical ballooning and basilar sparing. 5. Acute dysphagia: Currently nothing by mouth, speech therapy follow-up. 6. Acute coagulopathy secondary to warfarin: Now resolved s/p vitamin K subcutaneous 1 on 02/26/17. 7. Hyperglycemia of critical illness: Monitor Accu-Cheks and cover with sliding scale insulin. 8. 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 GI prophylaxis: Pepcid. 10. DVT prophylaxis: SCDs. Lovenox Problem Qualifiers (1) UTI (urinary tract infection): Qualified Codes: N39.0 - Urinary tract infection, site not specified Julio Morales MD Mar 03, 2017 08:44
[2017-03-03] MEDS: CEFEPIME INJ 2,000 MG in SODIUM CHLORIDE 0.9% INJ 100 ML IV SCH (08:52)
--- NOTE | 2017-03-03 09:17 | RADRPT ---
EXAM DATE/TIME: 03/02/2017 13:51 [facility] COMPARISON: No previous studies available for comparison. INDICATIONS : Patient with a history of altered mental status. MEDICAL HISTORY : HTN COPD Lung CA GERD SURGICAL HISTORY : Tonsillectomy CABG Right lung removed Cholecystectomy Appendectomy Hysterectomy ENCOUNTER: Initial ACUITY: 4 -6 days PAIN SCORE: Nonresponsive. LUMBAR PUNCTURE TIME: 1417 FLUORO TIME: 1.6 minutes IMAGE SERIES: 1 ACCESS LEVEL: L3-4 FLUID: 22 cc of clear CSF was collected and sent to the laboratory for analysis. PROCEDURE : 1. Fluoroscopic guided lumbar puncture. The risks, benefits and alternatives to the procedure were explained and verbal and written consent w as obtained. The site was prepped in sterile fashion. Full sterile technique was used, including ca p, mask, sterile gloves and gown and a large sterile sheet. Hand hygiene and 2% chlorhexidine and/or betadine/alcohol prep was utilized per protocol for cutaneous antisepsis. The skin and subcutaneous tissues were infiltrated with local anesthetic solution. With fluoroscopic guidance the lumbar thecal sac was punctured at the level above. The fluid describ ed above was removed without difficulty. The patient tolerated the procedure well and there were no complications. CONCLUSION: Uncomplicated fluoroscopically guided lumbar puncture. Charli Christian MD on March 03, 2017 at 9:15 Board Certified Radiologist. This report was verified electronically.
--- NOTE | 2017-03-03 11:13 | PD.CONS ---
Consult Service Palliative Care Consult Requested By Dr Morales . Primary Care Physician Arben Patton MD Reason for Consultation a. To assist with evaluation and management of symptoms including: AMS/ confusion/lethargy b. To assist medical decision maker(s) with: better understanding of current medical conditions; weighing benefits/burdens of medical treatment options; making medical treatment decisions. HPI History of Present Illness This 81-year-old patient presented to the ED on 02/26/17 via EMS for AMS. She apparently was last seen normal by her friends the morning prior. She was found by one of her friends on the bathroom floor confused. His reported to be on Coumadin and there is concern for head injury and possible fall. At ED presentation patient was confused and not answering questions appropriately. Also noted to be tachycardic 120s, and febrile 101.7. She was unable to provide any history. * Twelve-lead EKG notes normal sinus rhythm anterior septal Q waves with ST elevation, STEMI of undetermined origin. Heart rate 90s. + leukocytosis 16.4. INR supratherapeutic 7.5. Troponin elevated 5.28. CT brain negative for acute process. C-spine imaging negative. CXR negative for acute process. Patient was admitted to ICU for further evaluation and management of sepsis, CT, AMS. * Cardiology consulted notes possible sepsis elevated troponin, NSTEMI,. Further notes EKG definitely different than prior though would not consider STEMI currently, patient denying chest pain, stat echo indicates mid to distal apical wall akinesis, question if this is her baseline, other differential includes Takotsubo cardiomyopathy which may correlate with elevated troponins. Due to AMS would not take to cardiac catheterization lab. Obtain MRI to rule out CVA, continue medical management. EF 20-25 percent, +apical ballooning, basilar sparing * Crane cultures pending. Patient on vancomycin, cefepime * MRI brain with small cortical CVA, this felt not likely contributing to altered mental status * Neurology consulted-patient with acute encephalopathy possibly secondary to UTI, also has elevated troponins a mild dyspnea cardiopulmonary could be causing /contributing. Notes very tiny left occipital infarct not clinically significant. Cleared for any further necessary cardiac/medical procedures by neurology. Continue medical management. * EEG= severely limited study secondary to diffuse muscle artifact. * 03/01 fluoroscopy guided LP for CSF * 03/02 Patient unable to participate in speech therapy swallowing evaluations recommended nothing by mouth. More alert with periods of lethargy. Remains confused. Tachycardic at times. Urine culture negative. Blood cultures negative to date. Vancomycin and cefepime continue. Started on IV acyclovir by neurology, CSF for VDRL pending, HSV-1, 2 pending. * 03/03 patient still lethargic. Not following commands. Palliative care consulted to assist with clarification of goals of treatment. . Patient seen in room no visitors present. She is lethargic. She stirs some to my exam but does not verbalize; makes some mumbling sounds. Does not follow any commands. Observe her spontaneously moving/clutching her upper extremities. After exam call to daughter listed as contact, unable to leave voicemail phone just rings. Nursing reports daughter in [place] expected to be here possibly Monday of next week. Of note patient with recent ER visit 02/17/17 presenting for shortness of breath 3 weeks also reporting nausea vomiting and poor appetite and unsteadiness on her feet. She had been seen outpatient and prescribed doxycycline. During that course CXR with no acute process. BNP 356. She was ordered for Lasix 5 days. She did not require admission. She was discharged home with diagnosis of shortness of breath, CHF with instructions to follow up with primary. Otherwise, last visit was for CVA in 2016. Function/Cognitive Trajectory Lived at home alone. Previously used a cane as needed. Previously had home O2 and nebulizer as needed. Apparently per neighbors with general decline over the past few mos. only eating pudding, ?difficulty swallowing. Estranged daughter reports about 1 yr ago with forgetfulness, emotional outbursts/"mean" behaviors , difficulty following directions for ADLs, and concern pt should no longer live alone. ?underlying dementia. . Review of Systems ROS Limitations: Poor Historian, Other (noncommunicative certain my exam, AMS per neighbors who notified EMS) Past Family Social History Coded Allergies: cefuroxime (Unverified Adverse Reaction, Severe, SEVERE ABD PAIN, 02/26/17) Uncoded Allergies: TREMADIN (Allergy, Unknown, ., 03/11/16) Past Medical History Lung cancer-status post pneumonectomy, XRT History of pulmonary embolus TIA/CVA Past Surgical History Pneumonectomy 2007-lung cancer (RT) Hysterectomy (2/2 ectopic ) Appendectomy Coronary artery bypass, 1998 Tonsillectomy Cholecystectomy Reported Medications Lasix (Furosemide) 20 Mg Tab 20 Mg PO DAILY 5 Days Metoprolol Succinate ER 24 HR (Metoprolol Succinate) 50 Mg Tab 50 Mg PO DAILY [Cranberry] 25,000 Mg PO DAILY Vitamin C ER (Ascorbic Acid) 500 Mg Maite 1,000 Mg PO Co Q 10 (Coenzyme Q10 (Ubidecarenone)) 100 Mg-5 Unit Cap Jantoven (Warfarin) 3 Mg Tab 3 Mg PO DAILY Atorvastatin (Atorvastatin Calcium) 40 Mg Tab 40 Mg PO HS Ecotrin Low Strength (Aspirin) 81 Mg Tabdr 81 Mg PO DAILY Omeprazole 20 Mg Tab 20 Mg PO HS Symbicort Inh (Budesonide/Formoterol Fumarate) 160-4.5 Mcg/Act Aero 2 Puff INH Q12HR . Current Medications Medications (Trade) Dose Ordered Sig/Melvin Route Start Time Stop Time Status Last Admin (NS Flush) 2 ml UNSCH PRN IV FLUSH 02/26/17 12:00 02/26/17 13:24 (Mag-Ox) 800 mg UNSCH PRN PO 02/26/17 14:00 Magnesium Sulfate 4 gm/Sodium Chloride 100 ml @ 50 mls/hr UNSCH PRN IV 02/26/17 14:00 Magnesium Sulfate 2 gm/Sodium Chloride 100 ml @ 50 mls/hr UNSCH PRN IV 02/26/17 14:00 Potassium Chloride 100 ml @ 50 mls/hr Q2H PRN IV 02/26/17 14:00 02/28/17 21:11 Potassium Chloride 100 ml @ 50 mls/hr Q2H PRN IV 02/26/17 14:00 Potassium Chloride 100 ml @ 50 mls/hr Q2H PRN IV 02/26/17 14:00 Potassium Chloride 100 ml @ 25 mls/hr UNSCH PRN IV 02/26/17 14:00 (K-Phos) 2,000 mg Q4H PRN PO 02/26/17 14:00 (K-Phos) 2,000 mg UNSCH PRN PO/TUBE 02/26/17 14:00 Potassium Phosphate 30 mmol/ Sodium Chloride 260 ml @ 42 mls/hr UNSCH PRN IV 02/26/17 14:00 Sodium Phosphate 30 mmol/Sodium Chloride 250 ml @ 42 mls/hr UNSCH PRN IV 02/26/17 14:00 (Tylenol) 650 mg Q6H PRN PO 02/26/17 14:00 (Zofran Inj) 4 mg Q6H PRN IV PUSH 02/26/17 14:00 Miscellaneous Information 1 [id number] XX 02/26/17 14:00 (Chlorhexidine 2% Cloth) 3 pack Taper DAILY@04 TOP 02/27/17 04:00 02/23/18 03:59 03/03/17 04:00 (Chlorhexidine 2% Cloth) 3 pack UNSCH PRN TOP 02/26/17 14:00 (Milk Of Magnesia Liq) 30 ml Q12H PRN PO 02/26/17 14:00 (Dulcolax Supp) 10 mg DAILY PRN RECTAL 02/26/17 14:00 Pharmacy Profile Note 0 ml @ 0 mls/hr UNSCH OTHER 02/26/17 16:00 Vancomycin HCl 700 mg/Sodium Chloride 257 ml @ 250 mls/hr Q18H IV 02/27/17 09:00 Future Hold 03/02/17 08:49 (Duoneb Neb) 1 ampule Q2HR NEB PRN NEB 02/27/17 00:15 03/01/17 05:17 Dextrose/Sodium Chloride 1,000 ml @ 42 mls/hr [id number] IV 02/27/17 16:00 03/02/17 12:52 (Pill Splitter) 1 ea UNSCH PRN OTHER 02/28/17 12:15 (Pepcid Inj) 10 mg Q12H IV PUSH 02/28/17 17:00 03/03/17 05:18 (Lopressor Inj) 5 mg Q6HR IV PUSH 03/01/17 12:00 03/03/17 05:18 Acyclovir Sodium 450 mg/Sodium Chloride 100 ml @ 100 mls/hr Q12H IV 03/02/17 18:00 03/03/17 05:18 Cefepime HCl 2000 mg/Sodium Chloride 100 ml @ 200 mls/hr Q24H IV 03/03/17 08:00 03/03/17 08:52 Family History Per EMR family history of cancer, no family history seizure or stroke. Substance Use Tobacco: None per EMR, former smoker quit 20 years ago Alcohol: None per EMR Prescription med abuse: None per EMR Illicits: Per EMR history of urine positive for opiates, benzos . Psychosocial History . 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 Has 3 adult children whom she is estranged from. Lluvia is "like a daughter" but not actually a daughter. 1 son in [place], another daughter Leila in [place], and another daughter who is reported to be mentally ill/possible schizophrenia/ unstable, her location is not known. Spiritual/Cultural Factors Scientologist Living Will: Never completed Health Care Surrogate: Never completed Durable Power of Crystalizer: Never completed Ethical and Legal Issues based on available information patient does not appear to have advanced directives or designated healthcare surrogate. Patient is confused, lethargic unable to make decisions. Not known if she will regain capacity, or when. she may have underlying dementia process. per [place] statutes adult children would be appropriate legal proxy.Has 3 adult children whom she is estranged from. Lluvia is "like a daughter" but not actually a daughter. 1 son in [place], another daughter Leila in [place], and another daughter who is reported to be mentally ill/possible schizophrenia/unstable, her location is not known. Leila is willing to serve as decision maker she last communicated w her mother about a year ago, she will contact son to determine if he wishes to participate, he will contact palliative or nursing. --------->>1720 son Demetrius Whiteside called me back, he does not wish to participate in decisions, he agrees with whatever Leila knows as pt wishes. . Physical Exam Vital Signs Date Time Temp Pulse Resp B/P (MAP) Pulse Ox O2 Delivery O2 Flow Rate FiO2 03/03/17 08:12 97 Nasal Cannula 2.00 03/03/17 06:00 98 03/03/17 04:42 100 Nasal Cannula 4.00 03/03/17 04:00 105 03/03/17 04:00 97.9 105 21 125/64 (84) 98 03/03/17 02:00 97 03/03/17 00:00 98.1 109 27 125/67 (86) 98 03/03/17 00:00 109 03/02/17 23:54 98 Nasal Cannula 4.00 03/02/17 22:00 110 03/02/17 20:07 98 Nasal Cannula 4.00 03/02/17 20:00 107 03/02/17 20:00 98.2 107 21 107/57 (74) 98 03/02/17 19:00 Nasal Cannula 2.00 96 03/02/17 18:00 102 03/02/17 16:00 105 03/02/17 16:00 98.4 105 22 100 03/02/17 15:00 107 20 98 03/02/17 14:39 108 21 115/63 (80) 99 03/02/17 14:00 108 40 03/02/17 14:00 108 03/02/17 13:00 109 20 98 03/02/17 12:00 109 03/02/17 12:00 98.3 109 24 120/80 (93) 99 03/02/17 11:00 119 26 03/03/17 03/04/17 18:59 06:59 Intake Total 113 ml Balance 113 ml IV Total 113 ml Exam CONSTITUTIONAL/GENERAL: This is an adequately nourished patient, in no apparent distress. TUBES/LINES/DRAINS: Peripheral IV upper extremity. Nasal cannula. SKIN: No jaundice, rashes, or lesions. Multiple areas confluent ecchymosis bilateral upper extremities. No wounds seen anteriorly. Skin warm HEAD: Atraumatic. Normocephalic. EYES: Pupils equal and round and reactive. Does not open eyes to command or stimuli. No scleral icterus. No injection or drainage. Fundi not examined. ENT:Nose without bleeding or purulent drainage. Does not open oropharynx for exam unable to visualize NECK: Trachea midline. Supple, nontender. No palpable thyroid enlargement or nodularity. CARDIOVASCULAR: Regular rate and rhythm , no murmur. Tachycardic. No JVD. Peripheral pulses symmetric. Slight peripheral edema bilateral upper extremities. RESPIRATORY/CHEST: Symmetric, unlabored respirations on nasal cannula. Clear to auscultation. Breath sounds equal bilaterally. GASTROINTESTINAL: Abdomen soft, flat, no apparent tenderness , nondistended. No hepato-splenomegaly, or palpable masses. No guarding. Bowel sounds present. GENITOURINARY: Without palpable bladder distension. MUSCULOSKELETAL: Extremities without clubbing, cyanosis.No joint tenderness or effusion noted. No mottling or clubbing. Slight edema upper extremities. LYMPHATICS: No palpable cervical or supraclavicular adenopathy. NEUROLOGICAL: Lethargic. Non-interactive with examiner. Nonverbal/makes mumbling sounds. Observe moving upper extremity spontaneously. Does not follow any commands. PSYCHIATRIC: Slight moaning/mumbling sounds at times. no apparent hallucinations or other psychotic thought process. Diagnostic Tests Laboratory Laboratory Tests Test 03/01/17 04:12 03/01/17 14:40 03/02/17 05:11 03/02/17 14:17 White Blood Count 17.8 TH/MM3 (4.0-11.0) 17.6 TH/MM3 (4.0-11.0) Red Blood Count 3.52 MIL/MM3 (4.00-5.30) 3.52 MIL/MM3 (4.00-5.30) Hemoglobin 10.6 GM/DL (11.6-15.3) 10.7 GM/DL (11.6-15.3) Hematocrit 32.7 % (35.0-46.0) 33.1 % (35.0-46.0) Mean Corpuscular Volume 92.9 FL (80.0-100.0) 93.9 FL (80.0-100.0) Mean Corpuscular Hemoglobin 30.0 PG (27.0-34.0) 30.4 PG (27.0-34.0) Mean Corpuscular Hemoglobin Concent 32.3 % (32.0-36.0) 32.4 % (32.0-36.0) Red Cell Distribution Width 15.5 % (11.6-17.2) 16.2 % (11.6-17.2) Platelet Count 333 TH/MM3 (150-450) 269 TH/MM3 (150-450) Mean Platelet Volume 7.2 FL (7.0-11.0) 7.8 FL (7.0-11.0) Erythrocyte Sedimentation Rate 45 mm/hr (0-30) Prothrombin Time 16.8 SEC (9.8-11.6) 17.1 SEC (9.8-11.6) Prothromb Time International Ratio 1.5 RATIO 1.5 RATIO Activated Partial Thromboplast Time 25.7 SEC (24.3-30.1) 27.7 SEC (24.3-30.1) Blood Urea Nitrogen 22 MG/DL (7-18) 31 MG/DL (7-18) Creatinine 0.90 MG/DL (0.50-1.00) 1.28 MG/DL (0.50-1.00) Random Glucose 131 MG/DL (74-106) 91 MG/DL (74-106) Calcium Level 8.3 MG/DL (8.5-10.1) 8.3 MG/DL (8.5-10.1) Sodium Level 145 MEQ/L (136-145) 148 MEQ/L (136-145) Potassium Level 5.4 MEQ/L (3.5-5.1) 5.5 MEQ/L (3.5-5.1) Chloride Level 117 MEQ/L (98-107) 120 MEQ/L (98-107) Carbon Dioxide Level 18.6 MEQ/L (21.0-32.0) 18.0 MEQ/L (21.0-32.0) Anion Gap 9 MEQ/L (5-15) 10 MEQ/L (5-15) Estimat Glomerular Filtration Rate 60 ML/MIN (>89) 40 ML/MIN (>89) Vancomycin Level Trough 18.1 MCG/ML (5.0-10.0) CSF Volume (Tube 1) 4.0 ML CSF Supernatant Color (tube 1) CLEAR (CLEAR) CSF Gross Blood (Tube 1) 0 (0) CSF Volume (Tube 2) 5.0 ML CSF Supernatant Color (tube 2) CLEAR (CLEAR) CSF Gross Blood (Tube 2) 0 (0) CSF Volume (Tube 3) 5.0 ML CSF Supernatant Color (tube 3) CLEAR (CLEAR) CSF Gross Blood (Tube 3) 0 (0) CSF Volume (Tube 4) 8.5 ML CSF Supernatant Color (tube 4) CLEAR (CLEAR) CSF WBC (Tube 4) 10 /MM3 (0-10) CSF RBC (Tube 4) 12 /MM3 (NONE) CSF Neutrophils 0 % CSF Lymphocytes 54 % CSF Monocytes 46 % CSF Glucose 67 MG/DL (40-80) CSF Total Protein 36.3 MG/DL (15.0-45.0) Test 03/03/17 04:32 White Blood Count 17.2 TH/MM3 (4.0-11.0) Red Blood Count 3.63 MIL/MM3 (4.00-5.30) Hemoglobin 11.1 GM/DL (11.6-15.3) Hematocrit 33.6 % (35.0-46.0) Mean Corpuscular Volume 92.6 FL (80.0-100.0) Mean Corpuscular Hemoglobin 30.5 PG (27.0-34.0) Mean Corpuscular Hemoglobin Concent 33.0 % (32.0-36.0) Red Cell Distribution Width 15.9 % (11.6-17.2) Platelet Count 179 TH/MM3 (150-450) Mean Platelet Volume 8.0 FL (7.0-11.0) Hematology Comments Prothrombin Time 17.5 SEC (9.8-11.6) Prothromb Time International Ratio 1.6 RATIO Activated Partial Thromboplast Time 30.4 SEC (24.3-30.1) Blood Urea Nitrogen 40 MG/DL (7-18) Creatinine 1.38 MG/DL (0.50-1.00) Random Glucose 101 MG/DL (74-106) Calcium Level 8.2 MG/DL (8.5-10.1) Sodium Level 152 MEQ/L (136-145) Potassium Level 5.0 MEQ/L (3.5-5.1) Chloride Level 123 MEQ/L (98-107) Carbon Dioxide Level 17.3 MEQ/L (21.0-32.0) Anion Gap 12 MEQ/L (5-15) Estimat Glomerular Filtration Rate 37 ML/MIN (>89) Random Vancomycin Level 27.9 COMMENT Result Diagram: 03/03/1743103/03/17 0432 Microbiology Microbiology Date/Time Source Procedure Growth Status 03/02/17 14:17 Cerebral Spinal Fluid Lumbar Puncture Gram Stain - Final Resulted 03/02/17 14:17 Cerebral Spinal Fluid Lumbar Puncture CSF Culture - Preliminary NO GROWTH IN 24 HOURS. Resulted Imaging Last Impressions Lumbar Puncture Fluoroscopy 03/01/17 0000 Signed Impressions: Service Date/Time: February 13:51 - CONCLUSION: Uncomplicated fluoroscopically guided lumbar puncture. Charli Christian MD Carotid Artery Ultrasound 02/27/17 0000 Signed Impressions: Service Date/Time: Sunday, February 26, 2017 19:27 - CONCLUSION: Progression of the disease on the left. Ratio suggests [address] Repeat [address] angiogram would be of benefit. Seng Burch MD FACR Head CT 02/26/17 1153 Signed Impressions: Service Date/Time: Sunday, February 26, 2017 12:05 - CONCLUSION: Normal examination. Hubert Castillo MD Chest X-Ray 02/26/17 1153 Signed Impressions: Service Date/Time: Sunday, February 26, 2017 12:53 - CONCLUSION: No acute abnormality demonstrated. Right pneumonectomy. Left lung clear. Maurisio Saab MD Cervical Spine CT 02/26/17 0000 Signed Impressions: Service Date/Time: Sunday, February 26, 2017 12:05 - CONCLUSION: Multilevel degenerative facet disease and degenerative disc disease. No evidence of an acute fracture or spinal stenosis Hubert Castillo MD Brain MRI 02/26/17 0000 Signed Impressions: Service Date/Time: Sunday, February 26, 2017 15:27 - CONCLUSION: Tiny acute subcortical infarct of the left occipital lobe. Mild chronic white matter changes otherwise. Maurisio Saab MD Abdomen/Pelvis CT 02/26/17 0000 Signed Impressions: Service Date/Time: Sunday, February 26, 2017 12:12 - CONCLUSION: Stable examination. No evidence of bowel obstruction or concerning solid organ mass. Dense atherosclerotic disease. Stable consolidation right lower lobe. Hubert Castillo MD Patient/Family Conference Present at Family Conference: Quynh Dee Family Conference Time (mins): 45 Family Conference Location: Telephone Issues Discussed: Spoke with quynh Dee at length on phone discussion included the following: * Palliative care role, purpose, approach * Additional medical, psychosocial, and spiritual history * Patients general health, functional status, and cognitive changes in the months leading up to the current hospitalization * Patient/family understanding of the current medical problems * Patient/family understanding of prognosis * Patients goals of care as best understood from advance directives and/or conversations and/or values * Current medical treatment options and benefits/burdens of those options * Legal decision makers per [place] statutes * CODE STATUS-she is adamant that the patient has a DNR and would want to be a DNR though she will confirm this with her brother as well as determine if he wishes to participate in decision-making * Likely scenarios comparing ongoing aggressive care with a transition to comfort measures only * Questions answered to the best of my ability * Palliative care contact information provided Leila endorses that she has been fairly estranged from the patient for the past 1 year due to the patient's behavioral outbursts and difficulty interacting with her previously. She reports episodes of confusing common devices i.e. telephone and remote, difficulty completing multistep tasks, and episodes of confusion/forgetfulness one year ago. She had concerns at that time that the patient should not be living alone.She would become angry and have outbursts and when people were driving places indicate that they were going the wrong place even though she had no idea where she was, and they were actually driving the correct direction etc. Sounds As if she may have an underlying dementia process. She has not had communication for her mother since that time due to emotional outbursts and needing to attend her own family. She further tells me that the patient had a DNR and somewhere had written request to not have artificial measures however no one can locate these at this time. Extensive discussion of current clinical course, current diagnostics, current treatments in place and current clinical assessment. Further review that with additional history she has provided it sounds like an underlying dementia process versus other acute process though certainly we can continue current treatments and await further diagnostic results. She feels the patient would be adamant about not having any type of feeding tube nor any type of CPR. He is willing to serve as the decision-maker she will talk to her brother Demetrius to determine if he wishes to participate, she informs that patient other daughter her sibling they have been estranged from she has schizophrenia and mental instability and has not been reachable. -----I later received a call from patient's son Demetrius Stevo indicates agreement with DNR and also dictates he does not wish to participate in decisions and would leave that to Leila. . Assessment and Plan Disease Oriented Problem List: (1) Tachycardia (2) Hx of pulmonary embolus (3) Hx of cancer of lung (4) CAD (coronary artery disease) (5) Hypertension (6) Hyperlipidemia (7) SOB (shortness of breath) (8) Sepsis (9) Apical ballooning syndrome (10) Elevated troponin (11) Dysphagia (12) Encephalopathy (13) Elevated troponin I level (14) Takotsubo cardiomyopathy (15) Acute CVA (cerebrovascular accident) (16) Warfarin-induced coagulopathy (17) Acute encephalopathy Symptom Scale: Pertinent Non-Medical Issues Psychosocial: Retired. . 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 Patient is confused, lethargic unable to make decisions. Not known if she will regain capacity, or when. Appears she has one daughter, per [place] statutes this would be appropriate legal proxy. Ethical issues impacting care: Important Contacts Daughter Lluvia Chi [phone] [place] [phone] . Prognosis Prognosis guarded. Patient was admitted for altered mental status, etiology at this time not clear. Additional serology for HSV 1, 2, as well as CSF for VDRL pending. She is not eating or drinking. She is lethargic. She is high risk for further complications and decline due to current clinical state. . Code Status: Full Code Plan * Legal decision maker: based on available information patient does not appear to have advanced directives or designated healthcare surrogate. Patient is confused, lethargic unable to make decisions. Not known if she will regain capacity, or when. she may have underlying dementia process. per [place] statutes adult children would be appropriate legal proxy.Has 3 adult children whom she is estranged from. Lluvia is "like a daughter" but not actually a daughter. 1 son in [place], another daughter Leila in [place], and another daughter who is reported to be mentally ill/possible schizophrenia/unstable, her location is not known. Leila is willing to serve as decision maker she last communicated w her mother about a year ago, she will contact son to determine if he wishes to participate, he will contact palliative or nursing. --------->> 1720 son Demetrius Whiteside called me back, he does not wish to participate in decisions, he agrees with whatever Leila knows as pt wishes. dtr Leila will serve as decision maker. * Goals: daughter Leila indicates mother prev. had DNR and would want DNR status. She also would NOT want feeding tube or other artificial measures. She wants to continue other aggressive treatments/workup, short of resuscitation, will continue to monitor clinical course in the coming days, and would like updates from clinicians/providers involved, further decisions pending clinical course. We did discuss the possibility of hospice if pt continues to decline. * CODE STATUS: DNR * SYMPTOMS: --lethargy/confusion- ?etiology- sepsis , additional viral serology pending. Tiny CVA which does not correlate w clinical sx. Per neighbors hx of general decline in the past mos. No current sx of pain. Recent ER visit w c/o n/v/ dyspnea though none noted or reported this admission. will cont to evaluate. * Palliative care will continue to follow during hospital course as condition evolves, to assist patient/decision-maker with understanding of medical conditions, weighing benefits/burdens of treatment options, for clarification of goals of treatment. Additionally will assist with any symptoms of palliative concern . Time Spent Total Floor Time (mins): 65 (Chart review, PE, exam, d/w family, RN) Thank you for the opportunity to participate in the care of Ms. Aguilar. Attestation To help prompt me to consider important information that might be impacting today's encounter and assessment, information from prior notes written by myself or my colleagues may have been "brought forward" into today's note. My signature on this note, however, is an attestation that I personally performed the exam, history, and/or decision-making noted today, and, unless otherwise indicated, the interactions with patient, family, and staff as well as the review of records all occurred today. I also attest that the listed assessment and stated plan reflect my best clinical judgment today based on the combination of historical information, prior notes, and today's exam/ interactions. When time spent is documented, it refers only to time spent today by the signer, or if indicated, combined time spent today by collaborating physician/nurse practitioner. Juliana Mccloud Mar 03, 2017 11:13
[2017-03-03] MEDS: DEXT 5%-NACL 0.9% 1000 ML INJ 1,000 ML IV SCH (13:21)
[2017-03-04] VITALS (14 sets, daily range): BP systolic 105–132; BP diastolic 59–66; PULSE 99–120; RESP 15–40; TEMP 96.2–99; O2SAT 2–98
[2017-03-04] MEDS: CHLORHEXIDINE GLUCONATE 2 % 1 PACK (2 CLOTHS) TOP SCH (04:00)
[2017-03-04] MEDS: FAMOTIDINE 20 MG/2 ML VIAL IV PUSH SCH ×2 (04:58→17:46)
[2017-03-04] MEDS: SODIUM CHLORIDE 0.9% IV SCH ×2 (04:58→17:45)
[2017-03-04] MEDS: METOPROLOL TARTRATE 5 MG/5 ML VIAL IV PUSH SCH ×4 (04:58→19:00)
[2017-03-04] MEDS: ACYCLOVIR IV SCH ×2 (04:58→17:45)
[2017-03-04 05:42] LABS: HEMATOCRIT 34.5 % (35.0-46.0); MEAN CELL VOLUME 95.6 FL (80.0-100.0); MEAN CORPUSCULAR HEMOGLOBIN 30.7 PG (27.0-34.0); MEAN CORPUSCULAR HGB CONC 32.1 % (32.0-36.0); PLATELET COUNT 108 TH/MM3 (150-450); RED BLOOD COUNT 3.61 MIL/MM3 (4.00-5.30); RED CELL DISTRIBUTION WIDTH 17.1 % (11.6-17.2); WHITE BLOOD COUNT 22.1 TH/MM3 (4.0-11.0)
[2017-03-04 06:02] LABS: BICARBONATE 12.6 MEQ/L (21.0-32.0)
[2017-03-04 06:04] LABS: POTASSIUM 4.8 MEQ/L (3.5-5.1)
[2017-03-04 06:39] LABS: REVIEW FLAG FINAL
[2017-03-04] MEDS: CEFEPIME INJ 2,000 MG in SODIUM CHLORIDE 0.9% INJ 100 ML IV SCH (08:00)
[2017-03-04 08:52] LABS: HSV 1,PCR Negative (Negative)
--- NOTE | 2017-03-04 11:40 | HHI.PR ---
Subjective Remarks Follow-up acute CVA/metabolic encephalopathy 03/01/17-patient seen and examined, alert but confused. Only oriented to self, not date, place or time. HR elevated 03/02/17-patient seen and examined, lethargic and confused. Does not follow command. Heart rate slightly up. Currently afebrile. Nothing by mouth. 03/03/17-patient seen and examined, still lethargic and does not follow command. HSV 1 and 2 pending as well as CSF VDRL 03/04/17-patient seen and examined, she was seen by palliative care and awaiting for hospice today. Lethargic and does not follow command however arousable. Afebrile. Objective Vitals Vital Signs Date Time Temp Pulse Resp B/P (MAP) Pulse Ox O2 Delivery O2 Flow Rate FiO2 03/04/17 08:45 98 Nasal Cannula 2.00 03/04/17 07:00 Nasal Cannula 2.00 03/04/17 06:00 99 03/04/17 04:00 103 03/04/17 04:00 97.7 103 24 128/60 (82) 96 03/04/17 03:40 2 Nasal Cannula 03/04/17 02:00 101 03/04/17 00:00 108 03/04/17 00:00 97.8 108 30 132/66 (88) 98 03/03/17 23:49 96 2.00 03/03/17 22:00 106 03/03/17 20:13 96 Nasal Cannula 2.00 03/03/17 20:00 106 03/03/17 20:00 97.8 106 21 120/69 (86) 96 03/03/17 19:00 97 Nasal Cannula 2.00 03/03/17 18:00 101 03/03/17 16:00 98.3 111 22 132/72 (92) 97 03/03/17 16:00 111 03/03/17 15:00 103 23 120/73 (89) 97 03/03/17 14:00 99 03/03/17 14:00 99 22 122/66 (84) 97 03/03/17 13:00 110 22 124/72 (89) 97 03/03/17 12:00 109 03/03/17 12:00 98.0 109 20 132/74 (93) 99 I/O 03/03/17 03/03/17 03/03/17 03/04/17 03/04/17 03/04/17 07:00 15:00 23:00 07:00 15:00 23:00 Intake Total 557 ml 213 ml 457 ml 546 ml Output Total 400 ml Balance 557 ml 213 ml 57 ml 546 ml Intake Oral 0 ml IV Total 557 ml 213 ml 457 ml 546 ml Output Urine Total 400 ml # Voids 3 3 # Bowel Movements 0 0 0 Result Diagram: 03/04/1740703/04/17407 Objective Remarks GENERAL: Lethargic and does not follow command SKIN: Warm and dry. HEAD: Normocephalic. EYES: No scleral icterus. No injection or drainage. NECK: Supple, trachea midline. No JVD or lymphadenopathy. CARDIOVASCULAR: Regular rate and rhythm without murmurs, gallops, or rubs. RESPIRATORY: Breath sounds equal bilaterally. No accessory muscle use. GASTROINTESTINAL: Abdomen soft, non-tender, nondistended. MUSCULOSKELETAL: No cyanosis, or edema. BACK: Nontender without obvious deformity. No CVA tenderness. 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 - Takotsubo syndrome (2) Elevated troponin I level ICD Code: R74.8 - Abnormal levels of other serum enzymes (3) Encephalopathy ICD Code: G93.40 - Encephalopathy, unspecified (4) Dysphagia ICD Code: R13.10 - Dysphagia, unspecified (5) Warfarin-induced coagulopathy ICD Code: D68.9 - Coagulation defect, unspecified; T45.515A - Adverse effect of anticoagulants, initial encounter Status: Acute (6) Acute CVA (cerebrovascular accident) ICD Code: I63.9 - Cerebral infarction, unspecified Status: Acute (7) Non-STEMI (non-ST elevated myocardial infarction) ICD Code: I21.4 - Non-ST elevation (NSTEMI) myocardial infarction Status: Acute (8) UTI (urinary tract infection) ICD Code: N39.0 - Urinary tract infection, site not specified Status: Resolved Assessment and Plan 81-year-old female with 1. Acute CVA: MRI brain shows tiny cortical infarct. Continue neuro checks. Appreciate input from neurology. 2. Acute metabolic encephalopathy: Worsening. CSF VDRL PENDING AND HSV 1 and 2 negative, continue IV acyclovir . Appreciate input from palliative care medicine and pending hospice consultation possible today 3. Sinus tachycardia: Continue with Lopressor push 2.5 mg every 8 when necessary. Appreciate input from cardiology 4. Elevated troponin, Takotsubo cardiomyopathy: Appreciate cardiology recommendations. 2-D echocardiogram showed ejection fraction of 20-25% with apical ballooning and basilar sparing. 5. Acute dysphagia: Currently nothing by mouth, speech therapy follow-up. 6. Acute coagulopathy secondary to warfarin: Now resolved s/p vitamin K 7. Hyperglycemia of critical illness: Continue with sliding scale insulin. 8. 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 GI prophylaxis: Pepcid. 10. DVT prophylaxis: SCDs. Lovenox Prognosis poor and condition guarded Problem Qualifiers (1) UTI (urinary tract infection): Qualified Codes: N39.0 - Urinary tract infection, site not specified Julio Morales MD Mar 04, 2017 11:40
[2017-03-04] MEDS: DEXT 5%-NACL 0.9% 1000 ML INJ 1,000 ML IV SCH (19:00)
[2017-03-05] VITALS (8 sets, daily range): BP systolic 114–120; BP diastolic 55–63; PULSE 99–117; RESP 22–31; TEMP 98.8–99.8; O2SAT 94–97
[2017-03-05] MEDS: METOPROLOL TARTRATE 5 MG/5 ML VIAL IV PUSH SCH ×2 (00:42→06:32)
[2017-03-05] MEDS: CHLORHEXIDINE GLUCONATE 2 % 1 PACK (2 CLOTHS) TOP SCH (00:42)
[2017-03-05] MEDS: DEXT 5%-NACL 0.9% 1000 ML INJ 1,000 ML IV SCH (02:04)
[2017-03-05] MEDS: FAMOTIDINE 20 MG/2 ML VIAL IV PUSH SCH (06:32)
[2017-03-05] MEDS: SODIUM CHLORIDE 0.9% IV SCH (06:33)
[2017-03-05] MEDS: ACYCLOVIR IV SCH (06:33)
[2017-03-05 06:39] LABS: HEMATOCRIT 34.2 % (35.0-46.0); MEAN CELL VOLUME 93.6 FL (80.0-100.0); MEAN CORPUSCULAR HEMOGLOBIN 30.1 PG (27.0-34.0); MEAN CORPUSCULAR HGB CONC 32.1 % (32.0-36.0); PLATELET COUNT 58 TH/MM3 (150-450); RED BLOOD COUNT 3.65 MIL/MM3 (4.00-5.30); RED CELL DISTRIBUTION WIDTH 16.9 % (11.6-17.2); WHITE BLOOD COUNT 17.6 TH/MM3 (4.0-11.0)
[2017-03-05 07:07] LABS: BICARBONATE 15.1 MEQ/L (21.0-32.0); POTASSIUM 4.7 MEQ/L (3.5-5.1)
[2017-03-05 07:55] LABS: REVIEW FLAG AUTO DIFF
[2017-03-05] MEDS: CEFEPIME INJ 2,000 MG in SODIUM CHLORIDE 0.9% INJ 100 ML IV SCH (08:08)
--- NOTE | 2017-03-05 09:08 | HHI.PR ---
Subjective Remarks Follow-up acute CVA/metabolic encephalopathy 03/01/17-patient seen and examined, alert but confused. Only oriented to self, not date, place or time. HR elevated 03/02/17-patient seen and examined, lethargic and confused. Does not follow command. Heart rate slightly up. Currently afebrile. Nothing by mouth. 03/03/17-patient seen and examined, still lethargic and does not follow command. HSV 1 and 2 pending as well as CSF VDRL 03/04/17-patient seen and examined, she was seen by palliative care and awaiting for hospice today. Lethargic and does not follow command however arousable. Afebrile. 03/05/17-patient seen and examined, lethargic with worsening renal indices. Daughter per nurse report is agreeable for hospice. Objective Vitals Vital Signs Date Time Temp Pulse Resp B/P (MAP) Pulse Ox O2 Delivery O2 Flow Rate FiO2 03/05/17 08:00 96 Nasal Cannula 2.00 03/05/17 06:00 102 03/05/17 04:00 110 03/05/17 04:00 99.8 110 31 120/63 (82) 94 03/05/17 02:00 103 03/05/17 00:00 98.8 117 28 115/60 (78) 94 03/05/17 00:00 117 03/04/17 22:00 120 03/04/17 20:00 113 03/04/17 20:00 99.0 113 26 111/61 (78) 93 03/04/17 19:00 93 Nasal Cannula 2.00 03/04/17 18:00 107 03/04/17 16:00 114 03/04/17 16:00 97.2 114 40 105/60 (75) 94 03/04/17 14:00 111 03/04/17 12:00 96.5 104 28 112/64 (80) 95 03/04/17 12:00 104 03/04/17 10:00 104 I/O 03/04/17 03/04/17 03/04/17 03/05/17 03/05/17 03/05/17 07:00 15:00 23:00 07:00 15:00 23:00 Intake Total 546 ml 490 ml Balance 546 ml 490 ml IV Total 546 ml 490 ml # Voids 3 3 # Bowel Movements 0 Result Diagram: 03/05/172 03/05/17 045 Objective Remarks GENERAL: Lethargic and does not follow command SKIN: Warm and dry. HEAD: Normocephalic. EYES: No scleral icterus. No injection or drainage. NECK: Supple, trachea midline. No JVD or lymphadenopathy. CARDIOVASCULAR: Regular rate and rhythm without murmurs, gallops, or rubs. RESPIRATORY: Breath sounds equal bilaterally. No accessory muscle use. GASTROINTESTINAL: Abdomen soft, non-tender, nondistended. MUSCULOSKELETAL: No cyanosis, or edema. BACK: Nontender without obvious deformity. No CVA tenderness. 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 - Takotsubo syndrome (2) Elevated troponin I level ICD Code: R74.8 - Abnormal levels of other serum enzymes (3) Encephalopathy ICD Code: G93.40 - Encephalopathy, unspecified (4) Dysphagia ICD Code: R13.10 - Dysphagia, unspecified (5) Warfarin-induced coagulopathy ICD Code: D68.9 - Coagulation defect, unspecified; T45.515A - Adverse effect of anticoagulants, initial encounter Status: Acute (6) Acute CVA (cerebrovascular accident) ICD Code: I63.9 - Cerebral infarction, unspecified Status: Acute (7) Non-STEMI (non-ST elevated myocardial infarction) ICD Code: I21.4 - Non-ST elevation (NSTEMI) myocardial infarction Status: Acute (8) UTI (urinary tract infection) ICD Code: N39.0 - Urinary tract infection, site not specified Status: Resolved Assessment and Plan 81-year-old female with 1. Acute CVA: MRI brain shows tiny cortical infarct. Continue neuro checks. Appreciate input from neurology. 2. Acute metabolic encephalopathy: Worsening. CSF VDRL PENDING AND HSV 1 and 2 negative, continue IV acyclovir . Appreciate input from palliative care medicine and pending hospice consultation possible today 3. Sinus tachycardia: Continue with Lopressor push 2.5 mg every 8 when necessary. Appreciate input from cardiology 4. Elevated troponin, Takotsubo cardiomyopathy: Appreciate cardiology recommendations. 2-D echocardiogram showed ejection fraction of 20-25% with apical ballooning and basilar sparing. 5. Acute dysphagia: Currently nothing by mouth, speech therapy follow-up. 6. Acute coagulopathy secondary to warfarin: Now resolved s/p vitamin K 7. Acute on chronic renal failure: Worsening renal indices 8. 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 GI prophylaxis: Pepcid. 10. DVT prophylaxis: SCDs. Lovenox Prognosis poor and condition guarded Likely discharge to hospice within the next 24 hours Problem Qualifiers (1) UTI (urinary tract infection): Qualified Codes: N39.0 - Urinary tract infection, site not specified Julio Morales MD Mar 05, 2017 09:08
--- NOTE | 2017-03-05 11:35 | HHI.DS ---
Discharge Summary Admission Date Feb 26, 2017 at 14:00 Discharge Date: Mar 05, 2017 Admitting Diagnosis sepsis, [place], altered mental status, supratherapeutic INR (1) Takotsubo cardiomyopathy ICD Code: I51.81 - Takotsubo syndrome (2) Elevated troponin I level ICD Code: R74.8 - Abnormal levels of other serum enzymes (3) Encephalopathy ICD Code: G93.40 - Encephalopathy, unspecified (4) Dysphagia ICD Code: R13.10 - Dysphagia, unspecified (5) Warfarin-induced coagulopathy ICD Code: D68.9 - Coagulation defect, unspecified; T45.515A - Adverse effect of anticoagulants, initial encounter Status: Acute (6) Acute CVA (cerebrovascular accident) ICD Code: I63.9 - Cerebral infarction, unspecified Status: Acute (7) Non-STEMI (non-ST elevated myocardial infarction) ICD Code: I21.4 - Non-ST elevation (NSTEMI) myocardial infarction Status: Acute (8) UTI (urinary tract infection) ICD Code: N39.0 - Urinary tract infection, site not specified Status: Resolved Procedures None Brief History - From Admission This is an 81-year-old female who presents via EMS for altered mental status. She was last seen normal last night by friends per report. Unfortunately, the patient is quite altered and unable to participate in history, so any additional information with the patient is unobtainable. 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 She presents today with fever to 101, tachycardia to the 120s, and altered mental status. She is protecting her airway and arousable, but cannot provide additional information. Her UA is positive. She has leukocytosis to 16,000, normal renal function. She does of note have an elevated troponin at greater than 5. Her INR is greater than 7. In the emergency department she was given 2 L of normal saline fluid bolus for suspected sepsis. Blood cultures were drawn and she was given vancomycin and Zosyn. Head CT is unremarkable. CT abdomen and pelvis is also unremarkable. CT C-spine is negative for acute fracture or cervical disruption. Critical- care medicine is consulted to evaluate her encephalopathy, elevated troponins, possible sepsis. Of note she does have an EKG with questionable inferior Q waves, without overt STEMI criteria. CBC/BMP: 03/05/17 0452 03/05/17 0452 Significant Findings Laboratory Tests Test 03/02/17 14:17 03/03/17 04:32 03/04/17 04:08 03/05/17 04:52 CSF RBC (Tube 4) 12 /MM3 (NONE) White Blood Count 17.2 TH/MM3 (4.0-11.0) 22.1 TH/MM3 (4.0-11.0) 17.6 TH/MM3 (4.0-11.0) Red Blood Count 3.63 MIL/MM3 (4.00-5.30) 3.61 MIL/MM3 (4.00-5.30) 3.65 MIL/MM3 (4.00-5.30) Hemoglobin 11.1 GM/DL (11.6-15.3) 11.1 GM/DL (11.6-15.3) 11.0 GM/DL (11.6-15.3) Hematocrit 33.6 % (35.0-46.0) 34.5 % (35.0-46.0) 34.2 % (35.0-46.0) Prothrombin Time 17.5 SEC (9.8-11.6) Activated Partial Thromboplast Time 30.4 SEC (24.3-30.1) Blood Urea Nitrogen 40 MG/DL (7-18) 51 MG/DL (7-18) 68 MG/DL (7-18) Creatinine 1.38 MG/DL (0.50-1.00) 1.96 MG/DL (0.50-1.00) 3.42 MG/DL (0.50-1.00) Calcium Level 8.2 MG/DL (8.5-10.1) 8.2 MG/DL (8.5-10.1) 8.2 MG/DL (8.5-10.1) Sodium Level 152 MEQ/L (136-145) 150 MEQ/L (136-145) 154 MEQ/L (136-145) Chloride Level 123 MEQ/L (98-107) 124 MEQ/L (98-107) 128 MEQ/L (98-107) Carbon Dioxide Level 17.3 MEQ/L (21.0-32.0) 12.6 MEQ/L (21.0-32.0) 15.1 MEQ/L (21.0-32.0) Estimat Glomerular Filtration Rate 37 ML/MIN (>89) 25 ML/MIN (>89) 13 ML/MIN (>89) Platelet Count 108 TH/MM3 (150-450) 58 TH/MM3 (150-450) Random Glucose 115 MG/DL (74-106) 110 MG/DL (74-106) Imaging Last Impressions Lumbar Puncture Fluoroscopy 03/01/17 0000 Signed Impressions: Service Date/Time: February 13:51 - CONCLUSION: Uncomplicated fluoroscopically guided lumbar puncture. Charli Christian MD Carotid Artery Ultrasound 02/27/17 Signed Impressions: Service Date/Time: Sunday, February 26, 2017 19:27 - CONCLUSION: Progression of the disease on the left. Ratio suggests [address] Repeat [address] angiogram would be of benefit. Seng Burch MD FACR Head CT 02/26/17 1153 Signed Impressions: Service Date/Time: Sunday, February 26, 2017 12:05 - CONCLUSION: Normal examination. Hubert Castillo MD Chest X-Ray 02/26/[id number] Signed Impressions: Service Date/Time: Sunday, February 26, 2017 12:53 - CONCLUSION: No acute abnormality demonstrated. Right pneumonectomy. Left lung clear. Maurisio Saab MD Cervical Spine CT 02/26/17 Signed Impressions: Service Date/Time: Sunday, February 26, 2017 12:05 - CONCLUSION: Multilevel degenerative facet disease and degenerative disc disease. No evidence of an acute fracture or spinal stenosis Hubert Castillo MD Brain MRI 02/26/17 Signed Impressions: Service Date/Time: Sunday, February 26, 2017 15:27 - CONCLUSION: Tiny acute subcortical infarct of the left occipital lobe. Mild chronic white matter changes otherwise. Maurisio Saab MD Abdomen/Pelvis CT 02/26/17 0000 Signed Impressions: Service Date/Time: Sunday, February 26, 2017 12:12 - CONCLUSION: Stable examination. No evidence of bowel obstruction or concerning solid organ mass. Dense atherosclerotic disease. Stable consolidation right lower lobe. Hubert Castillo MD PE at Discharge GENERAL: Lethargic and does not follow command SKIN: Warm and dry. HEAD: Normocephalic. EYES: No scleral icterus. No injection or drainage. NECK: Supple, trachea midline. No JVD or lymphadenopathy. CARDIOVASCULAR: Regular rate and rhythm without murmurs, gallops, or rubs. RESPIRATORY: Breath sounds equal bilaterally. No accessory muscle use. GASTROINTESTINAL: Abdomen soft, non-tender, nondistended. MUSCULOSKELETAL: No cyanosis, or edema. BACK: Nontender without obvious deformity. No CVA tenderness. Hospital Course Prior to patient being discharged to hospice, she was treated for 1. Acute CVA: MRI brain shows tiny cortical infarct. Neurology was consulted at a time and physical therapy was provided and to the patient's mentation deteriorated 2. Acute metabolic encephalopathy: Secondary to worsening encephalopathy patient was started on acyclovir IV. 3. Sinus tachycardia: Cardiology was consulted, and the She was treated with Lopressor push 2.5 mg every 8 when necessary. 4. Elevated troponin, Takotsubo cardiomyopathy: Cardiology was consulted. 2-D echocardiogram showed ejection fraction of 20-25% with apical ballooning and basilar sparing. 5. Acute dysphagia: Patient was kept nothing by mouth by speech therapy as she was unable to swallow. She was started on D5 water 6. Acute coagulopathy secondary to warfarin: Initially admitted with coagulopathy which resolved with vitamin K 7. Acute on chronic renal failure: Prior to discharge to hospice, patient was noted to have worsening renal function 8. 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 GI prophylaxis: Pepcid. 10. DVT prophylaxis: SCDs. Lovenox Pt Condition on Discharge: Deteriorating Discharge Disposition: Hospice/Med Facility Discharge Time: > 30 minutes Discharge Instructions DIET: Follow Instructions for: Nothing By Mouth Activities you can perform: Regular-No Restrictions Julio Morales MD Mar 05, 2017 11:35
[2017-03-05 14:54] LABS: CSF CRYPTOCOCCUS AG CONF ND (NOT DETECTD)
[2017-03-05] MEDS ORDERED: SODIUM CHLORIDE 0.9% IV SCH (21:00)
[2017-03-05] MEDS ORDERED: ACYCLOVIR IV SCH (21:00)
== END 2017-03-05 15:11 | disposition hospice, inpatient (51) | DRG 70 ==
LOC: NEPE 11:16 → NEDA 14:00 → HIMW 16:30 → HIME 02-28 06:49
PROVIDERS: ADMIT Internal Medicine Critical Care Medicine; ATTEND Hospitalist
PROC: 009U3ZX Drainage of Spinal Canal, Percutaneous Approach, Diagnostic (ICD-10-PCS; principal; 2017-03-02)
DX: G93.41 Metabolic encephalopathy (principal); I63.9 Cerebral infarction, unspecified; B00.4 Herpesviral encephalitis; A41.9 Sepsis, unspecified organism; I51.81 Takotsubo syndrome; I13.0 Hypertensive heart and chronic kidney disease with heart failure and stage 1 through stage 4 chronic kidney disease, or unspecified chronic kidney disease; N39.0 Urinary tract infection, site not specified; N17.9 Acute kidney failure, unspecified; R13.10 Dysphagia, unspecified; I50.9 Heart failure, unspecified; I25.10 Atherosclerotic heart disease of native coronary artery without angina pectoris; T45.515A Adverse effect of anticoagulants, initial encounter; Z51.5 Encounter for palliative care; E78.5 Hyperlipidemia, unspecified; R73.9 Hyperglycemia, unspecified; R00.0 Tachycardia, unspecified; R79.1 Abnormal coagulation profile; K21.9 Gastro-esophageal reflux disease without esophagitis; N18.9 Chronic kidney disease, unspecified; F03.90 Unspecified dementia, unspecified severity, without behavioral disturbance, psychotic disturbance, mood disturbance, and anxiety; Z85.118 Personal history of other malignant neoplasm of bronchus and lung; Z79.01 Long term (current) use of anticoagulants; Z86.711 Personal history of pulmonary embolism; Z95.1 Presence of aortocoronary bypass graft; Z87.891 Personal history of nicotine dependence; Z87.440 Personal history of urinary (tract) infections; Z88.1 Allergy status to other antibiotic agents
CPT/HCPCS: 51702; 62270; 70450; 70551; 71010; 72125; 74176; 76937; 77003; 80048; 80053; 80061; 80202; 80307; 81001; 82140; 82550; 82552; 82607; 82945; 82948; 83605; 83880; 84157; 84443; 84484; 85025; 85027; 85610; 85652; 85730; 86140; 86403; 86592; 86850; 86900; 86901; 87040; 87070; 87086; 87205; 87529; 87641; 89051; 93005; 93306; 93880; 94640; 94664; 94667; 95819; 96374; J0133; J0692; J2060; J2543; J3370; J3430; J3480; J7030; J7042; J7050